=== PATIENT | male | born 1960 | race Caucasian/White ===

== ENCOUNTER 2018-05-21 18:41 | Emergency (ER) | payer OTHER ==
--- NOTE | 2018-05-21 19:11 | ED ---
GI/ HPI - HPI Summary HPI Summary: This patient is a 58 year old M presenting to [facility] with a chief complaint of an erection lasting for 36 hours. Patient states he has never experienced priapism. He reports taking Trazadone at night and often wakes with an erection but will self-catheterize and will become flaccid; however, due to the length of his erection/pain he is unable to self-catheterize. He states he forgot to call Dr. Pickett, his uruologist, yesterday. Pain is rated 9/10 upon triage. Medications reviewed, including: Baclofen, Tramadol, Prozac trazadone, Topamax, and Hydroxyzine. PMHx pertinent for neurogenic bladder and left nephrectomy. - History of Current Complaint Chief Complaint: EDUrogenitalProblems Time Seen by Provider: 05/21/18 19:01 Stated Complaint: "ERECTION FOR OVER 36 HRS" PER PT Hx Obtained From: Patient Onset/Duration: Started Days Ago Timing: Constant Current Severity: Severe Pain Intensity: 9 Additional Locations for Males: Penis Associated Signs and Symptoms: Positive: Negative Additional Signs & Symptoms: Positive: Penile Swelling Alleviating Factor(s): Nothing - Additional Pertinent History Primary Care Physician: [id number] - Allergy/Home Medications Allergies/Adverse Reactions: Allergies Allergy/AdvReac Type Severity Reaction Status Date / Time No Known Allergies Allergy Verified 05/21/18 19:00 PMH/Surg Hx/FS Hx/Imm Hx Endocrine/Hematology History: Reports: Hx Anticoagulant Therapy Denies: Hx Diabetes Cardiovascular History: Reports: Other Cardiovascular Problems/Disorders - PE Denies: Hx Hypertension, Hx Pacemaker/ICD Respiratory History: Reports: Hx Pulmonary Embolism GI History: Reports: Hx Gall Bladder Disease, Hx Ulcer - PUD, Other GI Disorders - cholecystectomy History: Reports: Hx Renal Disease, Other Problems/Disorders - left nephrectomy, vasectomy, neurogenic bladder Musculoskeletal History: Reports: Other Musculoskeletal History - L arm fx Sensory History: Reports: Hx Contacts or Glasses Denies: Hx Hearing Aid Opthamlomology History: Reports: Hx Contacts or Glasses Psychiatric History: Reports: Hx Anxiety, Hx Depression, Hx Post Traumatic Stress Disorder, Other Psychiatric Issues/Disorders - Insomnia Denies: Hx Panic Disorder - Surgical History Surgery Procedure, Year, and Place: LEFT NEPHRECTOMY -1996 ( NEUROGENIC BLADDER - SELF-CATH). VASECTOMY. CHOLECYSTECTOMY -2004 Infectious Disease History: No Infectious Disease History: Denies: Traveled Outside the [place] in Last 30 Days - Family History Known Family History: Positive: Hypertension, Other - alcoholism - Social History Alcohol Use: None Alcohol Amount: quit in december 2010 - pt. stated had no drinks in a few months Hx Substance Use: Yes Substance Use Type: Reports: Marijuana Substance Use Comment - Amount & Last Used: none recently Hx Tobacco Use: Yes - used to smoke 1 ppd for 20 years, but now smokes 1/2 ppd Smoking Status (MU): Former Smoker Type: Cigarettes Amount Used/How Often: 1/2 PPD Review of Systems Negative: Fever Positive: pain - penil, other - erection All Other Systems Reviewed And Are Negative: Yes Physical Exam - Summary Physical Exam Summary: Appearance: Well-appearing, Well-nourished, lying in bed comfortable Skin: Warm, dry, no obvious rash Eyes: sclera anicteric, no conjunctival pallor ENT: mucous membranes moist Neck: deferred Respiratory: No signs of respiratory distress Cardiovascular: Appears well perfused, pulses are nml Abdomen: deferred Musculoskeletal: Moving all 4 extremities without obvious discomfort Neurological: Awake and alert, mentation is normal, speech is fluent and appropriate Psychiatric: affect is normal, does not appear anxious or depressed : patient has normal appearing penis that is erect Triage Information Reviewed: Yes Vital Signs On Initial Exam: Initial Vitals Temp Pulse Resp BP Pulse Ox 99.2 F 72 16 146/98 98 05/21/18 18:47 05/21/18 18:47 05/21/18 18:47 05/21/18 18:47 05/21/18 18:47 Vital Signs Reviewed: Yes Procedures - Procedure Summary Procedure Summary: After dorsal penile block with a mix of marcaine 0.5% and xylocaine 2% w/ epi, 2 aspirations were done with a 18 gauge needle, a total of 110 ml of blood was take off, with some detumescence. Dilute phenylephrine was also injected, a total of 600 mcg. Will observe for detumescence but given duration of this problem he may end up needing surgery. Diagnostics - Vital Signs Vital Signs Temp Pulse Resp BP Pulse Ox 05/21/18 19:06 59 22 149/88 98 05/21/18 19:05 21 05/21/18 18:47 99.2 F 72 16 146/98 98 - Laboratory Lab Statement: Any lab studies that have been ordered have been reviewed, and results considered in the medical decision making process. GIGU Course/Dx - Course Course Of Treatment: 58 y/o male presents with priapism lasting 36 hours. Patient given morphine for pain. Case discussed with Dr. Quarles, uruology, who recommends aspiration and if unsuccessful to admit the patient. Two aspirations were done with a 18 gauge needle, a total of 110 ml of blood was taken off, with some detumescence. Dilute phenylephrine was also injected, a total of 600 mcg. Sufficent detumescence did not occur, requiring uruology consultation and possible surgery. Due to lack of uruology coverage here, patient will be transfered to [facility] Emergency Department with Dr. Yip as accepting physician. - Diagnoses Provider Diagnoses: Priapism - Physician Notifications Discussed Care Of Patient With: Gregorio Quarles - uruology Time Discussed With Above Provider: 19:40 Instructed by Provider To: Other - recommends aspiration Discharge - Sign-Out/Discharge Documenting (check all that apply): Patient Departure - transfer Patient Received Moderate/Deep Sedation with Procedure: No - Discharge Plan Condition: Fair Disposition: TRANS HIGHER LVL OF CARE FAC - Billing Disposition and Condition Condition: FAIR Disposition: Trans Higher Lvl of Care Fac - Attestation Statements Document Initiated by Akashibenrique: Yes Documenting Scribe: Merline Brito Provider For Whom Toña is Documenting (Include Credential): Eleazar Lutz MD Scribenrique Attestation: IMerline, scribed for Eleazar Lutz MD on 05/21/18 at 2140. Scribe Documentation Reviewed: Yes Provider Attestation: The documentation as recorded by the Merline gonzalez accurately reflects the service I personally performed and the decisions made by me, Eleazar Lutz MD Status of Scribe Document: Viewed
[2018-05-21] MEDS ORDERED: Phenylephrine 40 MCG/ML SYRINGE PRN (19:16)
[2018-05-21] MEDS ORDERED: Lidocaine 2% EPI 1:200000 MPF* 10 ML VIAL INJ ONE (19:16)
[2018-05-21] MEDS ORDERED: Bupivacaine 0.5% W/EPI SDV* 10 ML VIAL INJ ONE (19:16)
[2018-05-21] MEDS ORDERED: oxyCODONE/Acetamin 5/325 MG* TAB PO ONE (19:26)
[2018-05-21] MEDS ORDERED: Lidocaine 2% EPI 1:200000 MPF*10-20 ML VIAL ONE (19:29)
[2018-05-21] MEDS ORDERED: Bupivacaine 0.5% W/EPI SDV* 30 ML VIAL ONE (19:29)
[2018-05-21] MEDS ORDERED: Phenylephrine 10 MG/ML VIAL* 1 ML VIAL PRN (20:00)
[2018-05-21] MEDS ORDERED: Morphine 4 MG/ML VIAL (1 ml) 4 MG/ML VIAL IV ONE (20:42)
[2018-05-21] MEDS ORDERED: NS 0.9% 1000 ML** 1,000 ML IV ONE (20:42)
[2018-05-21 22:22] VITALS: BP 126/82
[2018-05-21] MEDS ORDERED: Morphine 10 MG/ML VIAL (1 ml) ONE (22:44)
[2018-05-21] MEDS ORDERED: Morphine 10 MG/ML VIAL (1 ml) IV ONE (22:46)
== END 2018-05-21 22:50 | disposition short-term general hospital (02) ==
LOC: ED 18:41
DX: N48.33 Priapism, drug-induced (principal); T43.215A Adverse effect of selective serotonin and norepinephrine reuptake inhibitors, initial encounter; Y92.9 Unspecified place or not applicable; Z86.711 Personal history of pulmonary embolism; Z79.01 Long term (current) use of anticoagulants; N31.9 Neuromuscular dysfunction of bladder, unspecified; N28.9 Disorder of kidney and ureter, unspecified; Z90.5 Acquired absence of kidney; F41.9 Anxiety disorder, unspecified; F32.9 Major depressive disorder, single episode, unspecified; Z90.49 Acquired absence of other specified parts of digestive tract; Z98.52 Vasectomy status; Z87.891 Personal history of nicotine dependence
CPT/HCPCS: 54220; 96361; 96374; 96375; 99285; A9270-GY; J2270

== ENCOUNTER 2018-06-15 18:36 | Observation (INO) | payer OTHER ==
[2018-06-15] MEDS ORDERED: NS 0.9% 1000 ML** 1,000 ML IV ONE (19:03)
[2018-06-15] MEDS ORDERED: Ketorolac INJ* 30 MG/ML 1 ML VIAL IV PUSH ONE (19:04)
[2018-06-15] MEDS ORDERED: Ondansetron INJ* 2 MG/ML VIAL IV ONE (19:04)
[2018-06-15] MEDS ORDERED: Morphine 4 MG/ML VIAL (1 ml) 4 MG/ML VIAL IV ONE ×4 (19:04→21:56)
--- NOTE | 2018-06-15 19:04 | ED ---
GI/ HPI - HPI Summary HPI Summary: A 58 y/o M presents to ED with c/o sudden-onset R-sided flank pain onset approx 1.5 hours [employer]. Pain is rated 10 out of 10 and described as stabbing. Pt had a L nephrectomy 20 years ago. He has had kidney stones in the past, but says it doesn't feel the same. Associated sx: n/v. Pt is in visible distress at bedside. The patient is followed by Dr. Pickett here in [place] and apparently developed a neurogenic bladder due to chronic reflux and distended bladder. The nephrectomy was done at [facility] about 22 years ago due to chronic infections associated with his reflux. - History of Current Complaint Chief Complaint: EDUrogenitalProblems Time Seen by Provider: 06/15/18 19:01 Stated Complaint: ONE KIDNEY, SOMETHINGS WRONG WITH IT PER PT Hx Obtained From: Patient Onset/Duration: Started Hours Ago, Atraumatic, Still Present Timing: Constant Severity: Severe Current Severity: Severe Pain Intensity: 10 - out of 10 Location of Pain: Flank - R Pain Characteristics: Sharp - stabbing Associated Signs and Symptoms: Positive: Nausea, Vomiting - Additional Pertinent History Primary Care Physician: MANDI - Allergy/Home Medications Allergies/Adverse Reactions: Allergies Allergy/AdvReac Type Severity Reaction Status Date / Time No Known Allergies Allergy Verified 05/21/18 19:00 Home Medications: Home Medications Albuterol/Ipratropium RESP(NF) [Combivent Respimat (NF)] 1 puff INH Q6HR PRN [History Confirmed 06/15/18] Lurasidone(*) [Latuda] 40 mg PO BEDTIME 06/15/18 [History Confirmed 06/15/18] Prazosin CAP* [Minipress CAP*] 3 mg PO BEDTIME 06/15/18 [History Confirmed 06/15] traZODone TAB* [Desyrel TAB*] 100 mg PO BEDTIME 06/15/18 [History Confirmed ] PMH/Surg Hx/FS Hx/Imm Hx Previously Healthy: No Endocrine/Hematology History: Reports: Hx Anticoagulant Therapy Denies: Hx Diabetes Cardiovascular History: Reports: Other Cardiovascular Problems/Disorders - PE Denies: Hx Hypertension, Hx Pacemaker/ICD Respiratory History: Reports: Hx Pulmonary Embolism GI History: Reports: Hx Gall Bladder Disease, Hx Ulcer - PUD, Other GI Disorders - cholecystectomy History: Reports: Hx Renal Disease, Other Problems/Disorders - left nephrectomy, vasectomy, neurogenic bladder Musculoskeletal History: Reports: Other Musculoskeletal History - L arm fx Sensory History: Reports: Hx Contacts or Glasses Denies: Hx Hearing Aid Opthamlomology History: Reports: Hx Contacts or Glasses Psychiatric History: Reports: Hx Anxiety, Hx Depression, Hx Post Traumatic Stress Disorder, Other Psychiatric Issues/Disorders - Insomnia Denies: Hx Panic Disorder - Surgical History Surgery Procedure, Year, and Place: LEFT NEPHRECTOMY -1996 ( NEUROGENIC BLADDER - SELF-CATH). VASECTOMY. CHOLECYSTECTOMY -2004 Infectious Disease History: No Infectious Disease History: Denies: Traveled Outside the [place] in Last 30 Days - Family History Known Family History: Positive: Hypertension, Other - alcoholism - Social History Occupation: Unemployed Lives: Alone Alcohol Use: None Alcohol Amount: quit in december 2010 - pt. stated had no drinks in a few months Hx Substance Use: Yes Substance Use Type: Reports: Marijuana Substance Use Comment - Amount & Last Used: none recently Hx Tobacco Use: Yes - used to smoke 1 ppd for 20 years, but now smokes 1/2 ppd Smoking Status (MU): Current Every Day Smoker Type: Cigarettes Amount Used/How Often: 1/2 PPD Review of Systems Positive: Vomiting, Nausea Positive: flank pain - R All Other Systems Reviewed And Are Negative: Yes Physical Exam - Summary Physical Exam Summary: Appearance: Well-appearing, Well-nourished, appears to be in colicky pain Skin: Warm, dry, no obvious rash Eyes: sclera anicteric, no conjunctival pallor ENT: mucous membranes moist, pharynx appears normal Neck: Supple, nontender Respiratory: Clear to auscultation, no signs of respiratory distress Cardiovascular: Normal S1, S2. No murmurs. Normal distal pulses in tibial and radial bilaterally. Abdomen: Soft, nontender, normal active bowel sounds present Musculoskeletal: Normal, Strength/ROM Intact Neurological: A&Ox3, awake and alert, mentation is normal, speech is fluent and appropriate Psychiatric: affect is normal, does not appear anxious or depressed Triage Information Reviewed: Yes Vital Signs On Initial Exam: Initial Vitals Temp Pulse Resp BP Pulse Ox 97.9 F 54 19 195/116 99 06/15/18 18:38 06/15/18 18:38 06/15/18 18:38 06/15/18 18:38 06/15/18 18:38 Vital Signs Reviewed: Yes Diagnostics - Vital Signs Vital Signs Temp Pulse Resp BP Pulse Ox 06/15/18 18:38 97.9 F 54 19 195/116 99 - Laboratory Result Diagrams: 06/17/18 06:23 06/17/18 06:23 Lab Statement: Any lab studies that have been ordered have been reviewed, and results considered in the medical decision making process. - CT A/P CT CT Interpretation Completed By: Radiologist Summary of CT Findings: IMPRESSION: 1. Moderate to severe hydronephrosis and hydroureter caused by 8 6 x 7 mm calculus in the distal right ureter close to the UVJ. 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 Few additional small calculi seen in the right lower pole. There are a few calculi within the thick walled bladder. 2. Status post left nephrectomy. ED provider has reviewed this report. - Ultrasound No standard instances Ultrasound Interpretation Completed By: Radiologist Summary of Ultrasound Findings: R RENAL US IMPRESSION: Severe hydronephrosis of the right kidney and hydroureter. Several large intrarenal calculi seen. ED provider has reviewed this report. Re-Evaluation - Re-Evaluation 1 Re-Evaluation Time: 19:31 Change: Unchanged Comment: Pt stating medication not providing relief. Patient seen during ultrasound, he clearly has hydronephrosis. Given that he has only a solitary remaining kidney, we will need to get a CT scan to confirm the diagnosis of ureteral stone as he would likely need surgical regimen prior to someone with 2 kidneys. 2 Re-Evaluation Time: 21:15 Comment: Clarified that pt last drank water at 1800 and ate solid food at 1300. 3 Re-Evaluation Time: 21:40 Comment: Discussing consult with Dr. Pickett and plan to take pt to OR. 4 Re-Evaluation Time: 21:53 GIGU Course/Dx - Course Course Of Treatment: Pt is a 58 y/o M who appears to be in colicky pain c/o sudden-onset R-sided flank pain onset approx 1630. Pt had a L nephrectomy 20 years ago. Lab work shows WBC: 17.6, CO2: 17, Creatinine: 1.4. R Renal US shows "Severe hydronephrosis of the right kidney and hydroureter. Several large intrarenal calculi seen." A/P CT shows "1. Moderate to severe hydronephrosis and hydroureter caused by 8 6 x 7 mm calculus in the distal right ureter close to the UVJ. 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 Few additional small calculi seen in the right lower pole. There are a few calculi within the thick walled bladder. 2. Status post left nephrectomy.". Consulted with Dr. Pickett uro, who will take patient to surgery. - Diagnoses Provider Diagnoses: Renal colic, Ureteral obstruction, right, Solitary kidney, acquired - Physician Notifications Discussed Care Of Patient With: Jak Pickett - uro Time Discussed With Above Provider: 21:10 Instructed by Provider To: Other - Discussed case, he'll look at CT and call back. Consulted at 2140: Will call OR team and take pt to surgery. Discharge - Sign-Out/Discharge Documenting (check all that apply): Patient Departure - ADMIT - OR Patient Received Moderate/Deep Sedation with Procedure: No - Discharge Plan Condition: Stable Disposition: ADMITTED TO [facility] - Billing Disposition and Condition Condition: STABLE Disposition: Admitted to [facility] - Attestation Statements Document Initiated by Toña: Yes Documenting Akashibe: Monique Montano Provider For Whom Toña is Documenting (Include Credential): Dr. Eleazar Lutz MD Scribe Attestation: Monique Ordonez, scribed for Dr. Eleazar Lutz MD on 06/18/18 at 0644. Scribe Documentation Reviewed: Yes Provider Attestation: The documentation as recorded by the Monique gonzalez accurately reflects the service I personally performed and the decisions made by me, Dr. Eleazar Lutz MD Status of Scribe Document: Viewed
[2018-06-15 19:56] LABS: ABS Basophils 0 10^3/ul (0-0.2); ABS Eosinophils 0.1 10^3/ul (0-0.6); ABS Lymphocytes 1.1 10^3/ul (1.0-4.8); ABS Monocytes 0.6 10^3/ul (0-0.8); ABS Neutrophils 15.8 10^3/ul (1.5-7.7); ABS Nucleated RBC 0 10^3/ul; Eosinophil % 0.3 %; Hematocrit 43 % (36-46); Hemoglobin 14.3 g/dL (14.0-18.0); Lymphocyte % 6.1 %; Mean Corpuscular HGB Conc 33 g/dL (31-36); Mean Corpuscular Hemoglobin 32 pg (27-31); Mean Corpuscular Volume 95 fL (80-94); Mean Platelet Volume 7.5 fL (7.4-10.4); Nucleated Red Blood Cells % 0; Platelet Count 236 10^3/uL (150-450); Red Blood Count 4.51 10^6 /uL (4.18-5.48); Red Cell Distribution Width 13 % (10.5-15); White Blood Count 17.6 10^3/uL (3.5-10.8)
[2018-06-15 20:14] LABS: Albumin/Globulin Ratio 1.4 (1-3); BUN/Creatinine Ratio 7.9 (8-20); Calcium 8.7 mg/dL (8.6-10.3); EGFR African American 63.4 (>60); EGFR Non-African American 52.4 (>60); Globulin 2.8 g/dL (2-4); Potassium 3.7 mmol/L (3.5-5.0); Total Bilirubin 0.3 mg/dL (0.2-1.0); Total Protein 6.8 g/dL (6.4-8.9)
[2018-06-15] MEDS ORDERED: cefTRIAXone(*) 1 GM in NS 0.9% 50 ML* 50 ML IVPB ONE (21:40)
[2018-06-15] MEDS ORDERED: Iohexol 180 (CONTRAST) 10 ML SDV IV ONE (22:12)
[2018-06-15] MEDS ORDERED: Buffered Lidocaine 1% SYRIN* 1 ML/SYRINGE INTRADERM ONE (22:25)
[2018-06-15] MEDS ORDERED: Naloxone* 0.4 MG/ML 1 ML VIAL IV PRN (22:26)
[2018-06-15] MEDS ORDERED: PROCHLORPERAZINE INJ 5 MG/ML 2 ML VIAL IV PRN (22:26)
[2018-06-15] MEDS ORDERED: Acetaminophen IV 1GM/100ML * 1,000 MG/100 ML VIAL IVPB ONE (22:26)
[2018-06-15] MEDS ORDERED: DiMENhydriNATE IV* 50 MG/ML VIAL IV PUSH PRN (22:26)
[2018-06-15] MEDS ORDERED: diPHENhydraMINE IV* 50 MG/ML 1 ml VIAL (BENADRYL) IV PRN (22:26)
[2018-06-15] MEDS ORDERED: fentaNYL* 50 MCG/ML 2 ML VIAL (100 MCG VIAL) IV PRN (22:26)
[2018-06-15] MEDS ORDERED: Levalbuterol 0.63MG/3ML NEB* UNIT OF USE INH PRN (22:26)
[2018-06-15] MEDS ORDERED: Levofloxacin 750 MG IVPREMIX(* 750 MG/150 ML BAG ONE (22:34)
[2018-06-15] MEDS ORDERED: Famotidine IV* 10 MG/ML 2 ML (20 mg) ONE (22:40)
[2018-06-15] MEDS ORDERED: Lidocaine 2% PF * 5 ML VIAL ONE (22:45)
[2018-06-15] MEDS ORDERED: Cisatracurium* 2 MG/ML MDV 5 ML ONE (22:45)
[2018-06-15] MEDS ORDERED: Dexamethasone IV* 4 MG/ML 1 ML (4 MG) ONE (22:45)
[2018-06-15] MEDS ORDERED: Propofol* 10 MG/ML 20 ML BTL ONE ×2 (22:45→23:37)
[2018-06-15] MEDS ORDERED: fentaNYL* 50 MCG/ML 2 ML VIAL (100 MCG VIAL) ONE (22:45)
[2018-06-15] MEDS ORDERED: Succinylcholine* 20 MG/ML 10 ML VIAL ONE (22:45)
[2018-06-15] MEDS ORDERED: Ondansetron INJ* 2 MG/ML VIAL IV PRN (22:59)
[2018-06-15] MEDS ORDERED: Docusate CAP* 100 MG PO PRN (22:59)
[2018-06-15] MEDS ORDERED: Senna TAB PO PRN (22:59)
[2018-06-15] MEDS ORDERED: Magnesium Hydroxide LIQ* 30 ML UDC PO PRN (22:59)
[2018-06-15] MEDS ORDERED: hydrOXYzine HCL TAB* 50 MG PO PRN (23:05)
[2018-06-16] MEDS ORDERED: Levalbuterol HFA INHALER* 1 PUFF MDI ONE (00:01)
--- NOTE | 2018-06-16 00:03 | HP ---
HISTORY AND PHYSICAL: ADDENDUM: It should be corrected - the patient will receive levofloxacin while in the OR, not vancomycin. It should also report that we will continue with Rocephin in the postoperative period unless cultures grow otherwise, given the multiple drug reactions between patient's home medications and ciprofloxacin. RAFITA AGUILAR, HUB INVENTORY SPECIALIST [id number]/[facility] #: [id number] [facility]rick
[2018-06-16] MEDS ORDERED: Acetaminophen IV 1GM/100ML * 100 ML ONE (00:17)
[2018-06-16] MEDS: Lactated Ringers 1000 ML Bag* 1,000 ML IV SCH ×4 (01:09→22:16)
[2018-06-16] MEDS: traZODone TAB* 100 MG PO SCH ×2 (01:48→21:29)
[2018-06-16] MEDS: traMADol TAB* 50 MG PO PRN ×4 (01:48→21:29)
[2018-06-16] MEDS ORDERED: HYDROmorphone INJ1* 1 MG/ML SYRINGE IV PRN (02:53)
[2018-06-16] MEDS ORDERED: HYDROmorphone INJ1* 1 MG/ML SYRINGE ONE (03:00)
--- NOTE | 2018-06-16 03:36 | HP ---
ADDENDUM NOW INCLUDED ON THIS REPORT CC: Dr. Molina; Dr. Pickett * HISTORY AND PHYSICAL: DATE OF ADMISSION: 06/15/18. PRIMARY CARE PROVIDER: Dr. Molina. OTHER PROVIDER: Dr. Pickett. ATTENDING PHYSICIAN: Dr. Bullock * (dictated by Bel Aguilar NP) CHIEF COMPLAINT: Right flank pain. HISTORY OF PRESENT ILLNESS/HOSPITAL COURSE: Mr. Coon is a 58-year-old male with a past medical history of asthma, kidney stones, anxiety, back pain, COPD, chronic pain; who presented to the emergency department today with sudden onset right-sided flank pain. Onset was approximately 1.5 hours before arriving to the emergency department. He rated the pain as 10/10. He also complained of nausea and vomiting in the emergency room and was documented to be in visible distress. While in the emergency department, patient had a CT of his abdomen, which revealed moderate to severe hydronephrosis and hydroureter caused by a 6 x 7 mm calculus in the distal right ureter close to the UVJ. In addition, patient had a renal ultrasound which revealed severe hydronephrosis of the right kidney and hydroureter. Several large intrarenal calculi seen. Given these findings, in addition to the finding of leukocytosis and elevated creatinine, Dr. Pickett from Urology was consulted. Dr. Pickett is familiar with the patient and decided that the patient should be taken to the OR. The hospitalists were consulted to assist in patient's admission. The patient was evaluated in the PACU prior to be taken to surgery. Patient reports he is more comfortable now after pain medication. PAST MEDICAL HISTORY: 1. Asthma. 2. Kidney stone. 3. Anxiety. 4. Back pain. 5. COPD. 6. Chronic pain syndrome. 7. Posttraumatic stress disorder. 8. Neuromuscular dysfunction of the bladder. PAST SURGICAL HISTORY: 1. Cholecystectomy. 2. Nephrectomy of left kidney. HOME MEDICATIONS: 1. Combivent Respimat 1 puff inhalation q.6 hours p.r.n. 2. Latuda 40 mg p.o. at bedtime. 3. Trazodone 100 mg p.o. at bedtime. 4. Symbicort 2 puffs inhalations b.i.d. 5. Baclofen 10 mg p.o. t.i.d. p.r.n. 6. Minipress 3 mg p.o. at bedtime. 7. Prozac 30 mg p.o. daily. 8. Minipress 1 mg p.o. daily. 9. Tramadol 50 mg p.o. q.6 hours p.r.n. 10. Hydroxyzine 50 mg p.o. t.i.d. p.r.n. 11. Topamax 50 mg p.o. t.i.d. ALLERGIES: Patient has no allergies. FAMILY HISTORY: Significant for the fact that he does not know his biological father, but he was told he was an alcoholic. This was obtained from previous records. SOCIAL HISTORY: Patient has a significant history of smoking approximately 40 years. Patient reports he quit 2 months ago. 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 Patient denies recreational drug use. Patient does not have a healthcare proxy and does not want to assign a surrogate decision maker at this time. REVIEW OF SYSTEMS: Constitutional: No fevers. No anorexia. Cardiac: No chest pain, no edema. Respiratory: No cough, no hemoptysis, no shortness of breath. GI: Patient has been experiencing nausea and vomiting since the onset of pain. No diarrhea, no constipation. Right flank pain. : Patient has had a decrease in urine output. Patient self-caths due to flaccid bladder. Neuro: No focal weakness or sensory loss. Eyes: No visual complaints. ENT: No dysphagia. Musculoskeletal: No new arthritis or myalgias. Patient reports he does have chronic pain in his back. Skin: No rashes or lesions. Psych: No psychosis or anxiety. PHYSICAL EXAMINATION GENERAL: Mr. Coon is a 58-year-old male with a past medical history significant for asthma, kidney stones, anxiety, back pain, COPD, chronic pain, neuromuscular dysfunction of bladder, PTSD, hypertension, pulmonary embolism who is sitting on the stretcher in the PACU. He is in no acute distress. Appears stated age. VITAL SIGNS: Temp 99.3, HR 72, RR 22, O2 saturation 94% on room air, BP 146/90. HEENT: Oral mucosa is moist without lesion. Posterior pharynx is clear. NECK: Full range of motion. No lymphadenopathy. RESPIRATORY: Symmetrical chest expansion. No accessory muscle use. Lung sounds are clear to auscultation. CARDIAC: Regular rate and rhythm. S1, S2 present. No murmurs, rubs, or gallops. ABDOMEN: Soft. Tender to palpation throughout. Bowel sounds normoactive. EXTREMITIES: Skin is warm and smooth bilaterally. No edema. MUSCULOSKELETAL: No pain or deformities. NEURO: Awake, alert, and oriented x4. Moves all extremities well. SKIN: Grossly intact without lesions. DIAGNOSTIC STUDIES/LAB DATA: WBC 16.6, hemoglobin 14.3, hematocrit 43, platelets 236,000. Sodium 136, potassium 3.7, chloride 107, carbon dioxide 17. BUN 11, creatinine 1.40, glucose 109. Renal ultrasound: Impression: Severe hydronephrosis of the right kidney and hydroureter. Several large intrarenal calculi seen. Abdomen/pelvis CT: Impression: Moderate to severe hydronephrosis and hydroureter caused by 6 x 7 mm calculus in the distal right ureter close to the UVJ. 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 A few additional small calculi seen in the right lower pole. There are a few calculi within the thick walled bladder. Status post left nephrectomy. ASSESSMENT AND PLAN: Mr. Coon is a 58-year-old male with a past medical history significant for asthma, kidney stone, anxiety, back pain, chronic obstructive pulmonary disease, chronic pain syndrome, neuromuscular dysfunction of bladder, posttraumatic stress disorder, hypertension, pulmonary embolism; who presented to the emergency department today with complaints of right flank pain and was found to have severe hydronephrosis with renal calculi. The patient will be admitted OBV after a stent is placed in the right ureter by Dr. Pickett. 1. Severe hydronephrosis of the right kidney and hydroureter, several large calculi: As mentioned above, Dr. Pickett was consulted and will be taking the patient to the OR this evening to place a stent in the right ureter. This hydronephrosis and calculi is causing leukocytosis, elevated creatinine, and decrease in urine output. After insertion of stent, patient should have repeat CBCs to monitor his white count. He should have strict I's and O's to monitor for urine output. He should also have IV fluids and a repeat creatinine to monitor kidney function. Patient received a dose of Rocephin in the emergency department. My attending and I reviewed patient's previous micro in the computer and believe he would be better covered on ciprofloxacin in the postop period. Per Dr. Pickett, he will also receive a dose of vanco while in the OR. 2. Asthma/chronic obstructive pulmonary disease: Patient reports he follows with Dr. Veloz. I have consulted Dr. Veloz's notes in regard to his inhaler treatment as he could not recall the names and I have updated his med rec accordingly and ordered these medications. Patient will be provided with these inhalers and nebulizers. 3. History of kidney stones: As mentioned above, Dr. Pickett is familiar with the patient due to history of kidney stones: Patient will receive a stent in the right ureter today. 4. Anxiety/posttraumatic stress disorder/depression: I have consulted the patient regarding his medication regimen and I have also consulted [employer]. Patient's medication reconciliation has been updated and his meds have been ordered accordingly. We should continue these while the patient is inpatient. We should also provide supportive care. 5. Back pain/chronic pain syndrome: Patient reports that he is a client of the pain clinic. Patient reports they have been working on reducing his medications. I reviewed patient's current medication regimen with him and I have ordered his pain medications accordingly. I would recommend these are held in the postop period at least this evening and restart it tomorrow and also help for sedation. 6. Neuromuscular dysfunction of bladder: Dr. Pickett mentioned that the patient does have a flaccid bladder and it is not neurogenic bladder in origin. He reports that the patient self-caths 3 to 4 times per day. Patient will have a Chinchilla in the postop period and then can resume self-cath. We should monitor patient's output as he was not producing urine prior to his arrival to the emergency department. 7. Essential hypertension: Patient is currently normotensive in the PACU. Patient is on terazosin which could be for his bladder or for blood pressure: Either way, I have reordered this and patient should have routine vital signs. 8. History of pulmonary embolism: In reviewing patient's medical history and Envivio, it is mentioned that patient had a clot in his lung provoked by a right elbow fracture. Given this, I will place the patient on subcu heparin for DVT prophylaxis. 9. FEN: Patient will be provided with IV fluid hydration. Patient can start a regular diet as tolerated after the OR. 10. Code status: Patient is a full code. 11. DVT prophylaxis: Based on DVT risk assessment, patient is moderate risk. I will order subcu heparin. TIME SPENT: Approximately 60 minutes were spent on this admission, greater than half the time was spent with the patient obtaining my history and performing my physical exam and reviewing my plan of care. The case has been reviewed with my attending, Dr. Bullock who agrees with my plan. BEL AGUILAR NP ADDENDUM: It should be corrected - the patient will receive levofloxacin while in the OR, not vancomycin. It should also report that we will continue with Rocephin in the postoperative period unless cultures grow otherwise, given the multiple drug reactions between patient's home medications and ciprofloxacin. BEL AGUILAR NP [id number]/CPS #: [id number]/CPS #: [id number] BEBA
[2018-06-16] MEDS ORDERED: HYDROmorphone INJ1* 1 MG/ML SYRINGE IV ONE (04:30)
[2018-06-16 05:16] LABS: ABS Basophils 0 10^3/ul (0-0.2); ABS Eosinophils 0 10^3/ul (0-0.6); ABS Lymphocytes 0.5 10^3/ul (1.0-4.8); ABS Monocytes 0.8 10^3/ul (0-0.8); ABS Neutrophils 15.9 10^3/ul (1.5-7.7); ABS Nucleated RBC 0 10^3/ul; Eosinophil % 0 %; Hematocrit 43 % (36-46); Hemoglobin 14.6 g/dL (14.0-18.0); Lymphocyte % 2.9 %; Mean Corpuscular HGB Conc 34 g/dL (31-36); Mean Corpuscular Hemoglobin 33 pg (27-31); Mean Corpuscular Volume 96 fL (80-94); Mean Platelet Volume 7.3 fL (7.4-10.4); Nucleated Red Blood Cells % 0; Platelet Count 219 10^3/uL (150-450); Red Blood Count 4.47 10^6 /uL (4.18-5.48); Red Cell Distribution Width 13 % (10.5-15); White Blood Count 17.3 10^3/uL (3.5-10.8)
[2018-06-16 05:34] LABS: Albumin 3.9 g/dL (3.2-5.2); Albumin/Globulin Ratio 1.4 (1-3); BUN/Creatinine Ratio 8.6 (8-20); Calcium 8.7 mg/dL (8.6-10.3); EGFR Non-African American 52.9 (>60); Globulin 2.8 g/dL (2-4); Potassium 4.7 mmol/L (3.5-5.0); Total Bilirubin 0.5 mg/dL (0.2-1.0); Total Protein 6.7 g/dL (6.4-8.9)
[2018-06-16] MEDS ORDERED: (Combivent Respimat) INH PRN (09:00)
[2018-06-16] MEDS: Topiramate TAB(*) 25 MG PO SCH ×3 (09:03→21:29)
[2018-06-16] MEDS: Prazosin CAP* 1 MG PO SCH (09:03)
[2018-06-16] MEDS: FLUoxetine CAP* 10 MG PO SCH (09:03)
[2018-06-16] MEDS: Baclofen TAB* 10 MG PO PRN ×2 (09:03→21:29)
[2018-06-16] MEDS: Heparin VIAL(*) 5000 UNITS/ML VIAL (FIVE THOUSAND) SUBCUT SCH ×2 (09:04→21:35)
[2018-06-16] MEDS: Mometasone/Formoter 200/5 MDI INH SCH ×2 (09:06→20:47)
--- NOTE | 2018-06-16 10:41 | OP ---
DATE OF OPERATION: 06/15/18 - ROOM #331 DATE OF : 64 SURGEON: Dr. Pickett. ANESTHESIOLOGIST: Dr. Lee Slade. ANESTHESIA: General. PRE-OP DIAGNOSES: 1. Solitary right kidney. 2. Distal right ureteral calculus. 3. Right hydronephrosis and anuria due to above. 4. Multiple bladder calculi. POST-OP DIAGNOSES: 1. Solitary right kidney. 2. Distal right ureteral calculus. 3. Right hydronephrosis and anuria due to above. 4. Multiple bladder calculi. OPERATIVE PROCEDURES: 1. Cystoscopy. 2. Right retrograde pyelography. 3. Right ureteroscopy. 4. Laser lithotripsy and extraction of distal right ureteral calculus (8 mm). 5. Right ureteral stent insertion (7-Nicaraguan). 6. Cystolitholapaxy (4 calculi, 1 cm each). INDICATION FOR PROCEDURE: Mr. Coon is a 58-year-old white male who has a solitary right kidney, flaccid neurogenic bladder, on intermittent self catheterization. He presented to the emergency room early this evening with symptoms of right renal colic and anuria. He did not have fever or chills. Noncontrast CT of the abdomen and pelvis showed a solitary right kidney, severe right hydronephrosis and hydroureter with an 8 mm calculus in the distal right ureter. There were also several calculi noted within the bladder. Because of the above history and findings, the patient is taken to the operating room on an urgent basis for drainage of the right kidney. PATHOLOGY AT CYSTOSCOPY: The penile and bulbar urethrae looked normal. The prostatic urethra measured 2.5 cm in length and there was moderate degree of obstruction by prostate enlargement. Examination of the bladder showed diffuse heavy trabeculations. The bladder was floppy consistent with the history of flaccid neurogenic bladder. There were minimal changes of cystitis. The right ureteral orifice was moderately patulous. Upon right retrograde pyelography, there was dilatation and tortuosity of the proximal ureter and there was severe right hydronephrosis. The urine drained from the right kidney looked concentrated, but did not look grossly infected. Upon right uteroscopy, there was an 8 mm calculus located in the distal right ureter. There were 5 calculi noted in the base of the bladder measuring an average of 1 cm each. The calculi had the gross appearance of calcium phosphate stones. DESCRIPTION OF PROCEDURE: After successful general anesthesia, the patient was placed in the lithotomy position and was prepped and draped for a cystoscopy. Cystoscopy was performed. The bladder was inspected and the above findings were noted. The right ureteral orifice was identified. A flexible tip guidewire was introduced into the right orifice; however, it could not be passed beyond the proximal ureter due to tortuosity. Retrograde pyelography was then performed demonstrating the tortuosity of the ureter. A glidewire was then introduced inside the right ureter and after several attempts, successfully straightened up the tortuosity of the ureter and the guidewire was introduced inside the renal pelvis. The open-ended catheter was then fed on top of the glidewire. Urine was drained from the right kidney and it did not look infected. The guidewire was then placed and the open-ended catheter was removed. Because the urine did not look infected and the bladder wall did not show any cystitis, it was decided to proceed with the right ureteroscopy. A size 6.5 semirigid ureteroscope was introduced inside the bladder and passed inside the right ureter. The calculus in the distal ureter was identified. A basket was introduced through the port of the ureteroscope and the stone was engaged. A size 550 micron laser fiber was then introduced through the other port of the ureteroscope and the stone was broken into multiple fragments using the laser energy. The fragments were then all extracted from the ureter and placed inside the bladder. The calculi in the bladder were also engaged inside the basket and they were all extracted and sent for chemical analysis. The cystoscope was then introduced over the guidewire. A size 7-Nicaraguan stent was then placed with the proximal end coiling in the renal pelvis and the distal end coiling inside the bladder. A 16-Nicaraguan Chinchilla catheter was then placed. The patient tolerated the procedure well and left the operating room in good condition. SPECIMENS: The specimens were fragments of right ureteral calculus and the bladder calculi. [id number]/CPS #: [id number] BEBA
--- NOTE | 2018-06-16 18:07 | PN ---
Subjective Date of Service: 06/16/18 Interval History: VS: afebrile Labs: leukocytosis, slightly elevated Cr Pt states he has chills and continued R flank and R abdominal pain. He feels unwell to go home. He is eating and drinking, but admits to decrease in appetite. No nausea, vomiting. He states his urine is dark and blood tinged- there is also sediment noted in julien bag. He denies CP, SOB, fever, abdominal pain, n/v/d/c. He has had no BM today. He has a cough, though he states this is chronic, and he follows with Dr. Veloz for asthma/COPD. Objective Active Medications: Albuterol/Ipratropium (Combivent Respimat(Nf)) 1 puff INH BID PRN; Protocol Baclofen (Lioresal Tab*) 10 mg PO TID PRN Docusate Sodium (Colace Cap*) 100 mg PO BID PRN Fluoxetine HCl (Prozac Cap*) 30 mg PO DAILY LETY Heparin Sodium (Porcine) (Heparin Vial(*)) 5,000 units SUBCUT Q12HR LETY Hydromorphone HCl (Dilaudid Inj1s*) 0.5 mg IV Q6H PRN Hydroxyzine HCl (Atarax Tab*) 50 mg PO TID PRN Lactated Ringer's (Lactated Ringers 1000 Ml Bag*) 1,000 mls @ 150 mls/hr IV PER RATE LETY Ceftriaxone Sodium 1 gm/ (Sodium Chloride) 50 mls @ 200 mls/hr IVPB 2100 LETY Levalbuterol HCl (Xopenex 0.63mg/3ml Neb*) 0.63 mg INH ONCE PRN Lurasidone HCl (Latuda) 40 mg PO BEDTIME LETY Magnesium Hydroxide (Milk Of Magnesia Liq*) 30 ml PO Q4H PRN Mometasone Furoate/Formoterol Fumar (Dulera 200/5 Mdi*) 2 puff INH BID LETY; Protocol Prazosin HCl (Minipress Cap*) 1 mg PO DAILY LETY Prazosin HCl (Minipress Cap*) 3 mg PO BEDTIME LETY Senna (Senokot Tab*) 1 tab PO BID PRN Topiramate (Topamax(*)) 50 mg PO TID LETY Tramadol HCl (Ultram*) 50 mg PO Q6H PRN Trazodone HCl (Desyrel Tab*) 100 mg PO BEDTIME LETY Vital Signs: Temp Pulse Resp BP Pulse Ox 98.4 F 54 16 131/64 98 06/16/18 15:18 06/16/18 15:18 06/16/18 16:25 06/16/18 15:18 06/16/18 15:18 Oxygen Devices in Use Now: None Appearance: Pt is sitting up in bed with HOB elevated and LE elevated. He appears diaphoretic. He is in no acute distress. Eyes: No Scleral Icterus, PERRLA Ears/Nose/Mouth/Throat: NL Teeth, Lips, Gums, Clear Oropharnyx, Mucous Membranes Moist Neck: NL Appearance and Movements; NL JVP, Trachea Midline Respiratory: Symmetrical Chest Expansion and Respiratory Effort, - - R lung with diffuse rales throughout; L CTA Cardiovascular: NL Sounds; No Murmurs; No JVD, RRR, No Edema Abdominal: NL Sounds; No Tenderness; No Distention, - - R CVA tenderness; abd diffusely TTP, R>L Extremities: No Edema, No Clubbing, Cyanosis Neurological: Alert and Oriented x 3 Result Diagrams: 06/16/18 04:58 06/16/18 04:58 Assess/Plan/Problems-Billing Assessment: - Patient Problems (1) S/P ureteral stent placement Comment: -POD1 lithotripsy with R ureteral stent placement -Management per Dr. Pickett -Follow up with Dr. Pickett in office in a.m. (2) Asthma with COPD Comment: -No wheeze, change in cough, but rales throughout L lung and chills -CXR 1V ordered -Continue home medications (3) Flaccid neurogenic bladder Comment: -Producing uring; julien inserted -Pt straight cath 3-4x/d at home; will resume on discharge (4) Chronic pain Comment: -Continue home medications (5) Anxiety Comment: -Continue home medications (6) Hypertension Comment: -WNL -Continue to monitor (7) DVT prophylaxis Comment: -Continue Heparin (8) Full code status Status and Disposition: Observation. Nieves following. Likely d/c in a.m.
[2018-06-16] MEDS ORDERED: Ketorolac INJ* 30 MG/ML 1 ML VIAL ONE (18:34)
[2018-06-16] MEDS: Ketorolac INJ* 30 MG/ML 1 ML VIAL IV PUSH PRN (18:52)
[2018-06-16] MEDS ORDERED: cefTRIAXone(*) 1 GM in NS 0.9% 50 ML* 50 ML IVPB SCH (21:00)
[2018-06-16] MEDS ORDERED: Prazosin CAP* 1 MG PO SCH (21:00)
[2018-06-16] MEDS ORDERED: Lurasidone(*) 40 MG TAB PO SCH (21:00)
[2018-06-17] MEDS: Ketorolac INJ* 30 MG/ML 1 ML VIAL IV PUSH PRN (01:33)
[2018-06-17] MEDS: Lactated Ringers 1000 ML Bag* 1,000 ML IV SCH (05:26)
[2018-06-17 06:41] LABS: ABS Basophils 0.1 10^3/ul (0-0.2); ABS Eosinophils 0.1 10^3/ul (0-0.6); ABS Lymphocytes 1.9 10^3/ul (1.0-4.8); ABS Monocytes 0.8 10^3/ul (0-0.8); ABS Neutrophils 5.7 10^3/ul (1.5-7.7); ABS Nucleated RBC 0 10^3/ul; Eosinophil % 1.2 %; Hematocrit 38 % (36-46); Hemoglobin 12.7 g/dL (14.0-18.0); Lymphocyte % 22.1 %; Mean Corpuscular HGB Conc 34 g/dL (31-36); Mean Corpuscular Hemoglobin 32 pg (27-31); Mean Corpuscular Volume 96 fL (80-94); Mean Platelet Volume 7.6 fL (7.4-10.4); Nucleated Red Blood Cells % 0; Platelet Count 170 10^3/uL (150-450); Red Blood Count 3.92 10^6 /uL (4.18-5.48); Red Cell Distribution Width 13 % (10.5-15); White Blood Count 8.5 10^3/uL (3.5-10.8)
[2018-06-17 06:57] LABS: BUN/Creatinine Ratio 13.5 (8-20); Calcium 8.4 mg/dL (8.6-10.3); EGFR African American 82.9 (>60); EGFR Non-African American 68.5 (>60); Potassium 3.7 mmol/L (3.5-5.0)
[2018-06-17] MEDS: Mometasone/Formoter 200/5 MDI INH SCH (10:19)
[2018-06-17] MEDS: Topiramate TAB(*) 25 MG PO SCH ×2 (10:23→14:44)
[2018-06-17] MEDS: Prazosin CAP* 1 MG PO SCH (10:23)
[2018-06-17] MEDS: Baclofen TAB* 10 MG PO PRN ×2 (10:23→14:44)
[2018-06-17] MEDS: traMADol TAB* 50 MG PO PRN ×2 (10:23→14:44)
[2018-06-17] MEDS: Heparin VIAL(*) 5000 UNITS/ML VIAL (FIVE THOUSAND) SUBCUT SCH (10:24)
[2018-06-17] MEDS: FLUoxetine CAP* 10 MG PO SCH (10:24)
[2018-06-17 14:48] VITALS: BP 139/82
--- NOTE | 2018-06-18 01:12 | DS ---
CC: Dr. Chris Elder; Dr. Jak Pickett* DISCHARGE SUMMARY: DATE OF ADMISSION: 06/15/18 DATE OF DISCHARGE: 06/17/18 PRIMARY CARE PROVIDER: Dr. Chris Elder. UROLOGIST: Dr. Jak Pickett. ATTENDING PHYSICIAN: Dr. Rafat Hall* (dictated by Gege Salas NP). PRIMARY DIAGNOSES: 1. Nephrolithiasis, status post right ureteral stent placement. 2. Hydronephrosis. 3. Acute kidney injury. SECONDARY DIAGNOSES: 1. Asthma. 2. Chronic obstructive pulmonary disease. 3. Anxiety. 4. Depression. 5. Chronic back pain. 6. Neurogenic bladder. 7. Hypertension. STUDIES WHILE IN THE HOSPITAL: 1. Renal ultrasound on 06/15/18 reads as severe hydronephrosis of the right kidney and hydroureter. Several large intrarenal calculi seen. 2. Abdomen pelvis CT on 06/15/18 reads as moderate to severe hydronephrosis and hydroureter caused by 8 x 6 x 7 mm calculus in the distal right ureter close to the UVJ. 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 Few additional small calculi seen in the right lower pole. There are few calculi within the thick walled bladder. Status post left nephrectomy. 3. Chest x-ray on 06/16/18 reads as no evidence for acute disease. 4. EKG on 06/17/18 showed normal sinus rhythm with a rate of 60, QTc of 442, no ischemic changes. 5. KUB x-ray on 06/17/18 reads as right ureteral stent in place. Nephrolithiasis in the lower pole of the right kidney is noted. HISTORY OF PRESENT ILLNESS AND HOSPITAL COURSE: Mr. Coon is a 58-year-old male with past medical history of nephrolithiasis, COPD, anxiety, depression, chronic back pain, and neuromuscular dysfunction of the bladder requiring self- cath who presented to the emergency room on 06/15/18 with complaints of right flank pain. Please see the history and physical by Bel Marion NP, for complete summary of the events leading up to this hospitalization. In short, the patient reports sudden onset of right flank pain approximately one and half hours prior to coming into the emergency room. He described the pain as 10/10 with associated nausea and vomiting. He had imaging as noted above, and because of those findings and acute kidney injury, Dr. Pickett from Urology was consulted. Dr. Pickett was familiar with the patient and proceeded to take him to the OR. The patient was admitted by the Hospitalist service. The patient was noted to have leukocytosis on admission with a white blood count of 17.6, white blood count as of today is 8.5. This is presumably elevated secondary to a stress response and was not indicative of any infection or infectious process, though because of the high suspicion for urinary tract infection, the patient was given a dose of Levaquin and subsequently started on ceftriaxone. The patient did not have urinalysis during this admission and it is not entirely clear why. On the day of admission, the patient underwent a cystoscopy, ureteroscopy, laser lithotripsy, and extraction of right ureteral calculus and a right ureteral stent insertion. The patient tolerated the procedure well and had an uneventful recovery. His elevated creatinine returned to baseline and as of today is 1.11. On admission, creatinine was 1.4. Initially, the plan was for the patient to be discharged yesterday on 06/16/18 , though in the evening he complained of malaise and did not feel as though he could go home. As of this morning, the patient is feeling much better. Chest x -ray and EKG as noted above were unremarkable. The patient offers no complaints. On exam, he reports some mild tenderness to the right flank, though was otherwise soft and nontender. Lungs sounds are clear on room air. Heart has a regular rate and rhythm. His physical exam is otherwise unremarkable. I did speak with Dr. Pickett this morning to get his recommendations for discharge. The patient did have a Chinchilla placed during this admission and Dr. Pickett recommended that the Chinchilla be removed and that the patient be able to successfully self-cath at least one time prior to discharge. The patient does typically self-cath 3 to 4 times a day at home. The patient was able to successfully self-cath per nursing report. Dr. Pickett additionally recommended that the patient have a KUB prior to discharge, the results of that are noted above. He recommended that the patient be placed on a 5-day course of Cipro and to follow up with him in the next week or two. The patient is in understanding of this plan and is agreeable to discharge. Mr. Coon is stable for discharge today. Vital signs are as follows: Temperature 98.5, heart rate 62, respiratory rate 16, oxygen saturation 96% on room air, blood pressure 139/82. DISCHARGE MEDICATIONS: New medication: 1. Ciprofloxacin 500 mg p.o. b.i.d. x5 days. Continued medications: 1. Combivent Respimat 1 inhalation b.i.d. p.r.n. in the evening. 2. Baclofen 10 mg p.o. t.i.d. p.r.n. spasms. 3. Symbicort 160/4.5 two puffs b.i.d. 4. Fluoxetine 30 mg p.o. daily. 5. Hydroxyzine 50 mg p.o. t.i.d. p.r.n. anxiety. 6. Latuda 40 mg p.o. at bedtime. 7. Prazosin 1 mg p.o. daily. 8. Prazosin 3 mg p.o. at bedtime. 9. Topamax 50 mg p.o. t.i.d. 10. Tramadol 50 mg p.o. q.6 hours p.r.n. pain. 11. Trazodone 100 mg p.o. at bedtime. DISCHARGE PLAN: Mr. Coon will be discharged home. Activity will be as tolerated. Diet will be regular as tolerated. Medications as noted above. As per Dr. Pickett's recommendations, I have placed the patient on a 5-day course of ciprofloxacin, which he has been instructed to start tonight. He will continue his other usual medications as noted above and I have not made any further changes. He should continue to self-cath as he was doing prior to admission. The patient will need to follow up with Dr. Pickett in the next 1 to 2 weeks for likely removal of the stent. The patient reports that he has an appointment scheduled for next week. He should follow up with his primary care provider in the next 4 to 7 days. He has been instructed to return to the hospital or nearest emergency room for any worsening of symptoms, shortness of breath, lightheadedness, dizziness, chest discomfort, high fever, chills, night sweats, loss of consciousness, or any other worrisome signs or symptoms. DISCHARGE CONDITION: Stable. DISCHARGE DISPOSITION: Home. This is a summarized report of a complex medical history and hospital stay. For further details, please see the entire medical record. TIME SPENT: Approximately 45 minutes was spent on this discharge. SIL SALAS, ARMEN [id number]/[facility] #: [id number] [facility]
== END 2018-06-17 15:05 | disposition home or self-care (01) ==
LOC: ED 18:36 → OR 22:21 → SSU 22:59
PROVIDERS: ADMIT Nurse Practitioner; ATTEND Urology
DX: Q60.0 Renal agenesis, unilateral (principal); N20.1 Calculus of ureter; N13.30 Unspecified hydronephrosis; R34 Anuria and oliguria; N21.0 Calculus in bladder; J45.909 Unspecified asthma, uncomplicated; Z87.442 Personal history of urinary calculi; F41.9 Anxiety disorder, unspecified; M54.9 Dorsalgia, unspecified; J44.9 Chronic obstructive pulmonary disease, unspecified; R11.2 Nausea with vomiting, unspecified; Z79.01 Long term (current) use of anticoagulants; F17.210 Nicotine dependence, cigarettes, uncomplicated; R10.84 Generalized abdominal pain
CPT/HCPCS: 36415; 71045; 74018; 74176; 74420; 76775; 80048; 80053; 82365; 85025; 88300; 93005; 94640; 96361; 96365; 96375; 99284; A9270-GY; G0378; J0330; J0696; J1100; J1170; J1644; J1885; J2270; J2405; J2704; J3010

== ENCOUNTER 2018-07-22 20:38 | Emergency (ER) | payer OTHER ==
[2018-07-22 22:21] LABS: Hematocrit 42 % (42-52); Hemoglobin 13.9 g/dL (14.0-18.0); Mean Corpuscular HGB Conc 34 g/dL (31-36); Mean Corpuscular Hemoglobin 32 pg (27-31); Mean Corpuscular Volume 94 fL (80-94); Mean Platelet Volume 7.3 fL (7.4-10.4); Platelet Count 195 10^3/uL (150-450); Red Cell Distribution Width 12 % (10.5-15); White Blood Count 14.2 10^3/uL (3.5-10.8)
[2018-07-22 22:38] LABS: Albumin 4.2 g/dL (3.2-5.2); Albumin/Globulin Ratio 1.8 (1-3); BUN/Creatinine Ratio 14.1 (8-20); Calcium 9.1 mg/dL (8.6-10.3); EGFR African American 66.2 (>60); EGFR Non-African American 54.7 (>60); Globulin 2.4 g/dL (2-4); Potassium 3.8 mmol/L (3.5-5.0); Total Bilirubin 0.2 mg/dL (0.2-1.0); Total Protein 6.6 g/dL (6.4-8.9)
[2018-07-22 23:22] LABS: Urine Appearance Cloudy; Urine Bacteria 1+ (Absent); Urine Bilirubin Negative (Negative); Urine Blood 2+ (Negative); Urine Color Yellow; Urine Glucose Negative (Negative); Urine Ketones Negative (Negative); Urine Nitrite Negative (Negative); Urine Protein Negative (Negative); Urine Red Blood Cell 3+(>10/hpf) (Absent); Urine Specific Gravity 1.006 (1.010-1.030); Urine Squamous Epithelial Cell Present (Absent); Urine Urobilinogen Negative (Negative); Urine White Blood Cell Trace(0-5/hpf) (Absent)
[2018-07-22] MEDS ORDERED: Ondansetron INJ* 2 MG/ML VIAL IV ONE (23:28)
[2018-07-22] MEDS ORDERED: Ketorolac INJ* 30 MG/ML 1 ML VIAL IV PUSH ONE (23:28)
[2018-07-22] MEDS ORDERED: Morphine 4 MG/ML VIAL (1 ml) 4 MG/ML VIAL IV ONE (23:28)
--- NOTE | 2018-07-22 23:34 | ED ---
Back Pain - HPI Summary HPI Summary: Pt is a 58 y/o M presenting to the ED with a chief complaint of R flank pain onset earlier today. He has a kidney stone that he was supposed to get removed this coming week, but the pain came on today severely and he has not been able to control it at home. He reports associated chills, and denies fevers. - History of Current Complaint Chief Complaint: EDFlankPain Stated Complaint: RT FLANK PAIN PER PT Time Seen by Provider: 07/22/18 23:24 Hx Obtained From: Patient Onset/Duration: Sudden Onset, Lasting Hours, Still Present Onset/Duration: Started Hours Ago, Still Present Timing: Constant, Lasting Hours Back Pain Location: Is Discrete @ - R lower flank Severity Initially: Moderate Severity Currently: Moderate Pain Intensity: 6 Pain Scale Used: 0-10 Numeric Character: Aching Aggravating Symptom(s): Nothing Alleviating Symptom(s): Nothing Associated Signs And Symptoms: Negative: Fever - Allergies/Home Medications Allergies/Adverse Reactions: Allergies Allergy/AdvReac Type Severity Reaction Status Date / Time No Known Allergies Allergy Verified 07/26/18 14:11 PMH/Surg Hx/FS Hx/Imm Hx Previously Healthy: No Endocrine/Hematology History: Reports: Hx Anticoagulant Therapy Denies: Hx Diabetes Cardiovascular History: Reports: Other Cardiovascular Problems/Disorders - PE Denies: Hx Hypertension, Hx Pacemaker/ICD Respiratory History: Reports: Hx Asthma, Hx Chronic Obstructive Pulmonary Disease (COPD), Hx Pulmonary Embolism GI History: Reports: Hx Gall Bladder Disease, Hx Ulcer - PUD, Other GI Disorders - cholecystectomy History: Reports: Hx Renal Disease, Other Problems/Disorders - left nephrectomy, vasectomy, neurogenic bladder Musculoskeletal History: Reports: Other Musculoskeletal History - L arm fx Sensory History: Reports: Hx Contacts or Glasses Denies: Hx Hearing Aid Opthamlomology History: Reports: Hx Contacts or Glasses Psychiatric History: Reports: Hx Anxiety, Hx Depression, Hx Post Traumatic Stress Disorder, Other Psychiatric Issues/Disorders - Insomnia Denies: Hx Panic Disorder - Surgical History Surgery Procedure, Year, and Place: LEFT NEPHRECTOMY -1996 ( NEUROGENIC BLADDER - SELF-CATH). VASECTOMY. CHOLECYSTECTOMY -2004 Infectious Disease History: No Infectious Disease History: Denies: Traveled Outside the [place] in Last 30 Days - Family History Known Family History: Positive: Hypertension, Other - alcoholism - Social History Alcohol Use: None Alcohol Amount: quit in december 2010 - pt. stated had no drinks in a few months Hx Substance Use: Yes Substance Use Type: Reports: Marijuana Substance Use Comment - Amount & Last Used: none recently Hx Tobacco Use: Yes - used to smoke 1 ppd for 20 years, but now smokes 1/2 ppd Smoking Status (MU): Former Smoker Type: Cigarettes Amount Used/How Often: 1/2 PPD Review of Systems Positive: Chills. Negative: Fever Positive: other - current kidney stone Positive: Myalgia All Other Systems Reviewed And Are Negative: Yes Physical Exam - Summary Physical Exam Summary: Appearance: Well-appearing, Well-nourished, lying in bed comfortably Skin: Warm, dry, no obvious rash Eyes: sclera anicteric, no conjunctival pallor ENT: mucous membranes moist, pharynx appears normal Neck: Supple, nontender Respiratory: Clear to auscultation, no signs of respiratory distress Cardiovascular: Normal S1, S2. No murmurs. Normal distal pulses in tibial and radial bilaterally. Abdomen: Soft, mild R flank tenderness, normal active bowel sounds present Musculoskeletal: Normal, Strength/ROM Intact Neurological: A&Ox3, awake and alert, mentation is normal, speech is fluent and appropriate Psychiatric: affect is normal, does not appear anxious or depressed Triage Information Reviewed: Yes Vital Signs On Initial Exam: Initial Vitals Temp Pulse Resp BP Pulse Ox 97.8 F 64 15 164/102 94 07/22/18 20:46 07/22/18 20:46 07/22/18 20:46 07/22/18 20:46 07/22/18 20:46 Vital Signs Reviewed: Yes Diagnostics - Vital Signs Vital Signs Temp Pulse Resp BP Pulse Ox 07/22/18 23:28 67 115/74 95 07/22/18 23:27 66 96 07/22/18 22:47 98.4 F 69 16 158/71 98 07/22/18 20:46 97.8 F 64 15 164/102 94 - Laboratory Lab Results: Lab Results 07/22/18 07/22/18 07/22/18 Range/Units 22:11 22:11 23:03 WBC 14.2 H (3.5-10.8) 10^3/uL RBC 4.40 (4.18-5.48) 10^6 /uL Hgb 13.9 L (14.0-18.0) g/dL Hct 42 (42-52) % MCV 94 (80-94) fL MCH 32 H (27-31) pg MCHC 34 (31-36) g/dL RDW 12 (10.5-15) % Plt Count 195 (150-450) 10^3/uL MPV 7.3 L (7.4-10.4) fL Sodium 134 L (135-145) mmol/L Potassium 3.8 (3.5-5.0) mmol/L Chloride 104 (101-111) mmol/L Carbon Dioxide 22 (22-32) mmol/L Anion Gap 8 (2-11) mmol/L BUN 19 (6-24) mg/dL Creatinine 1.35 H (0.67-1.17) mg/dL Est GFR ( Amer) 66.2 (>60) Est GFR (Non-Af Amer) 54.7 (>60) BUN/Creatinine Ratio 14.1 (8-20) Glucose 108 H (70-100) mg/dL Calcium 9.1 (8.6-10.3) mg/dL Total Bilirubin 0.20 (0.2-1.0) mg/dL AST 13 (13-39) U/L ALT 11 (7-52) U/L Alkaline Phosphatase 46 (34-104) U/L Total Protein 6.6 (6.4-8.9) g/dL Albumin 4.2 (3.2-5.2) g/dL Globulin 2.4 (2-4) g/dL Albumin/Globulin Ratio 1.8 (1-3) Urine Color Yellow Urine Appearance Cloudy Urine pH 5.0 (5-9) Ur Specific [place] 1.006 L (1.010-1.030) Urine Protein Negative (Negative) Urine Ketones Negative (Negative) Urine Blood 2+ A (Negative) Urine Nitrate Negative (Negative) Urine Bilirubin Negative (Negative) Urine Urobilinogen Negative (Negative) Ur Leukocyte Esterase 2+ A (Negative) Urine WBC (Auto) Trace(0-5/hpf) (Absent) Urine RBC (Auto) 3+(>10/hpf) A (Absent) Ur Squamous Epith Cells Present A (Absent) Urine Bacteria 1+ A (Absent) Urine Glucose Negative (Negative) Result Diagrams: 07/22/18 22:11 07/22/18 22:11 Lab Statement: Any lab studies that have been ordered have been reviewed, and results considered in the medical decision making process. - Radiology Abd XR Radiology Interpretation Completed By: ED Physician Summary of Radiographic Findings: No visible stones. Pending official radiology report. Back Pain Course/Dx - Course Course Of Treatment: Pt is a 58 y/o M presenting to the ED with a chief complaint of R flank pain onset earlier today. He has a kidney stone that flared up today and he has been unable to manage the pain at home. He reports associated chills, and denies fevers. On exam, the pt has mild R lower flank tenderness. His hematology shows WBC level of 14.2, Hgb of 13.9, MCH of 32, and MPV of 7.3. His chemistry shows a Sodium of 134, and a Creatinine of 1.35. His urine shows 2+ blood, 2+ leukocyte esterase, RBC 3+, present squamous epithelial cells, and 1+ urine bacteria, consistent with current kidney stone. In the ED course, the pt received a 10mg injection of Toradol, 10mg Morphine, and 8mg of Zofran. Abd XR shows no visible stones, pending official radiology report. The pt is stable and will be d/c'ed home with a dx of kidney stones. He is agreeable with this plan. - Diagnoses Provider Diagnoses: Kidney stones Discharge - Sign-Out/Discharge Documenting (check all that apply): Patient Departure Patient Received Moderate/Deep Sedation with Procedure: No - Discharge Plan Condition: Good Disposition: HOME Patient Education Materials: Kidney Stones (ED) Referrals: Jak Pickett MD [Medical Doctor] - Additional Instructions: Contact Dr. Pickett first thing Wednesday as he may need to change what type of procedure he will be doing to help with your stones. - Billing Disposition and Condition Condition: GOOD Disposition: Home - Attestation Statements Document Initiated by Scribe: Yes Documenting Scribe: Evy Leo Provider For Whom Toña is Documenting (Include Credential): Eleazar Lutz MD. Scribe Attestation: Evy Ordonez scribed for Eleazar Lutz MD. on 07/27/18 at 0414. Scribe Documentation Reviewed: Yes Provider Attestation: The documentation as recorded by the Evy gonzalez accurately reflects the service I personally performed and the decisions made by me, Eleazar Lutz MD. Status of Scribe Document: Viewed
[2018-07-23] MEDS ORDERED: Morphine 4 MG/ML VIAL (1 ml) 4 MG/ML VIAL IM ONE (02:04)
[2018-07-23 06:25] VITALS: BP 118/71
== END 2018-07-23 06:24 | disposition home or self-care (01) ==
LOC: ED 20:38
DX: N20.0 Calculus of kidney (principal); Z79.01 Long term (current) use of anticoagulants; Z86.711 Personal history of pulmonary embolism; J44.9 Chronic obstructive pulmonary disease, unspecified; F43.10 Post-traumatic stress disorder, unspecified; F32.9 Major depressive disorder, single episode, unspecified; F41.9 Anxiety disorder, unspecified; Z90.5 Acquired absence of kidney; Z87.891 Personal history of nicotine dependence
CPT/HCPCS: 36415; 74018; 80053; 81003; 81015; 85027; 87077; 87086; 87186; 96361; 96374; 96375; 99284; J1885; J2270; J2405

== ENCOUNTER → 2018-07-27 06:23 | Day surgery (SDC) | payer OTHER ==
--- NOTE | 2018-07-20 14:23 | HP ---
HISTORY AND PHYSICAL: DATE OF PLANNED ADMISSION AND SURGERY: 07/27/18 HISTORY OF PRESENT ILLNESS: Mr. Coon is a 58-year-old white male who is admitted with multiple right renal calculi for shockwave lithotripsy. 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 He has a solitary right kidney and had had recurrent episodes of urinary tract infections. He has been performing intermittent self- catheterization about 4 times per day. He was admitted about 5 weeks ago with right flank pain, pyelonephritis and was noted on CT of the abdomen and pelvis to have several calculi in the lower pole of the right kidney, right hydronephrosis and hydroureter and there was an 8-mm calculus in the distal right ureter and several calculi in the urinary bladder. The patient was taken to the operating room on the same day and underwent a cystoscopy with fragmentation and extraction of all the bladder calculi. He also underwent a right ureteroscopy, laser lithotripsy of the distal right ureteral calculus and insertion of right ureteral stent. He was treated for the urinary tract infections and he did very well. He was discharged home on Cipro for 5 days. He was then seen in the office and the right ureteral stent was removed 1 week postoperatively. He has done very well since that time and has continued on the intermittent self catheterization. The patient is now admitted for shockwave lithotripsy of the right renal calculi. PAST MEDICAL HISTORY AND SYSTEM REVIEW: The patient has history of asthma, COPD , anxiety, depression, chronic back pain, and hypertension. He is maintained on inhalers for his COPD. MEDICATIONS: 1. He is on Topamax 50 mg 3 times per day. 2. Tramadol 50 mg every 6 hours as needed for pain. 3. Trazodone 100 mg at bedtime. 4. He is on prazosin 3 mg at bedtime. 5. Latuda 40 mg at bedtime. 6. He takes hydroxyzine 50 mg 3 times per day as needed for anxiety. 7. He is on fluoxetine 30 mg daily. ALLERGIES: He denies any allergies to medications. FAMILY HISTORY: The patient does not know his biological father. SOCIAL HISTORY: The patient is a chronic smoker, but stopped recently. 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 He denies present recreational drug use. PHYSICAL EXAMINATION GENERAL: Pleasant white male, who looks a bit older than his age. VITAL SIGNS: Blood pressure 130/80, pulse of 60, temperature 97, oxygen saturation 98% on room air. LUNGS: Clear. HEART: Regular and rhythmic. No murmurs. ABDOMEN: Soft. No masses, no tenderness, and no CVA tenderness. EXTERNAL GENITALIA: Normal. IMPRESSION: 1. Flaccid neurogenic bladder, on intermittent self-catheterization. 2. Solitary right kidney with right hydroureteronephrosis secondary to vesicoureteral reflux. 3. Right renal calculi. 4. Chronic pyuria secondary to intermittent self-catheterization. 5. Anxiety. 6. Chronic back pain. 7. Depression. PLAN: The plan is for shockwave lithotripsy of the right renal calculi. The patient will be pretreated with Cipro 1 week preoperatively and it will be continued postoperatively. I discussed the plans in detail with the patient. All his questions were answered. [id number] #: [id number]
[~2018-07-27 06:23] MED LIST: Buffered Lidocaine 1% SYRIN* 1 ML/SYRINGE INTRADERM ONE; DiMENhydriNATE IV* 50 MG/ML VIAL IV PUSH PRN; HYDROmorphone INJ1* 1 MG/ML SYRINGE IV PRN; Iohexol 180 (CONTRAST) 10 ML SDV IV ONE; Lactated Ringers 1000 ML Bag* 1,000 ML IV SCH; Lidocaine 2% PF * 5 ML VIAL ONE; Midazolam* 1 MG/ML 5 ML VIAL (5 MG) ONE; Naloxone* 0.4 MG/ML 1 ML VIAL IV PRN; Ondansetron INJ* 2 MG/ML VIAL IV PRN; Ondansetron INJ* 2 MG/ML VIAL ONE; PROCHLORPERAZINE INJ 5 MG/ML 2 ML VIAL IV PRN; Propofol* 10 MG/ML 20 ML BTL ONE; cefTRIAXone(*) 2 GM ADDV.VIAL IVPB ONE; fentaNYL* 50 MCG/ML 2 ML VIAL (100 MCG VIAL) ONE; oxyCODONE TAB* 5 MG TAB PO PRN; oxyCODONE/Acetamin 5/325 MG* TAB ONE
[2018-07-27] MEDS: fentaNYL* 50 MCG/ML 2 ML VIAL (100 MCG VIAL) IV PRN ×4 (10:52→11:22)
[2018-07-27 12:12] VITALS: BP 154/85
--- NOTE | 2018-07-27 13:19 | OP ---
OPERATIVE REPORT: DATE OF OPERATION: 07/27/18 - LOCATED WITHIN [facility] DATE OF : 64 SURGEON: Jak Pickett MD ANESTHESIOLOGIST: Dr. Humble Katz. ANESTHESIA: General. PRE-OP DIAGNOSIS: Right renal calculi. POST-OP DIAGNOSES: 1. Bladder calculi. 2. Spontaneous passage of right renal calculi into the bladder. OPERATIVE PROCEDURE: 1. Cystoscopy. 2. Cystolithopexy. 3. Right ureteroscopy and retrograde pyelography. 4. Insertion of right ureteral stent (7-Montenegrin). INDICATION FOR PROCEDURE: Mr. Coon is a 58-year-old white male, who has a solitary right kidney and has history of recurrent right renal calculi. About one month ago, he required a cystoscopy, cystolithopexy, right ureteroscopy, extraction of right ureteral calculus. At that time, he was noted to have a cluster of 4 calculi, each measuring about 6 mm in size, located in the lower pole calyx of the right kidney. The patient was scheduled to undergo shockwave lithotripsy of the right renal calculi. For the last 3 days, he has been having recurrent episodes of right flank pain, suggestive of a passage of right renal calculi. Preoperative KUB did not show any calcification in the right kidney, suggestive that the calculi had moved into the ureter. Because of the above history and the persistence of the flank pain, the above procedure was advised and accepted. PATHOLOGY AT CYSTOSCOPY: The penile and bulbar urethrae looked normal. The prostatic urethra measured about 2.5 cm in length and there was moderate degree of prostate enlargement. Examination of the bladder showed 4 calculi in the base of the bladder. They measured between 6 and 8 mm each and they corresponded to the cluster of calculi seen on his original KUB in the right kidney. Fluoroscopy did not show any calculi in the right kidney. Right hydroureteronephrosis was noted consistent with the history of chronic reflux. DESCRIPTION OF PROCEDURE: After successful general anesthesia, the patient was placed in the lithotomy position and was prepped and draped for a cystoscopy. At fluoroscopy, no calculi was seen in the right kidney. Cystoscopy was then performed. The bladder was inspected and the bladder calculi were noted. Using a grasping forceps, the bladder calculi were broken into multiple fragments and they were irrigated and sent for stone analysis. Attention was then directed to the right ureter. The right ureteral orifice was identified. A flexible-tip guidewire was then introduced in the right ureter and positioned in the area of the renal pelvis. A size 6.5 semi-rigid tapered ureteroscope was then introduced inside the right orifice and passed without difficulty all the way into the proximal ureter and inside the renal pelvis. No calculi were identified in the ureter. The ureteroscope was then removed, keeping the guidewire in place. Retrograde pyelography was performed. A size 7-Montenegrin stent was then placed with the proximal end coiling in the renal pelvis and the distal end coiling inside the bladder. There was good drainage of contrast from the kidney and no extravasation. A 16-Montenegrin Ch[place] catheter was placed. The patient tolerated the procedure well and left the operating room in good condition. [id number]/CPS #: [id number]
== END | disposition home or self-care (01) ==
LOC: OR 06:23
PROVIDERS: ATTEND Urology
DX: N20.0 Calculus of kidney (principal); N21.0 Calculus in bladder; N31.9 Neuromuscular dysfunction of bladder, unspecified; Q60.0 Renal agenesis, unilateral; Z87.440 Personal history of urinary (tract) infections; J44.9 Chronic obstructive pulmonary disease, unspecified; F41.8 Other specified anxiety disorders; I10 Essential (primary) hypertension; M54.9 Dorsalgia, unspecified; Z87.891 Personal history of nicotine dependence; K21.9 Gastro-esophageal reflux disease without esophagitis
CPT/HCPCS: 74018; 82365; 88300; A9270-GY; C1876; J0696; J2250; J2405; J2704; J3010

== ENCOUNTER 2019-12-16 06:18 | Observation (INO) ==
[2019-12-16] MEDS ORDERED: NS 0.9% 1000 ml BAG 1,000 ML IV ONE (06:21)
[2019-12-16] MEDS ORDERED: Ondansetron 4 mg VIAL 2 MG/ML 2 ml VIAL IV ONE (06:25)
[2019-12-16] MEDS ORDERED: Morphine 4 MG/ML VIAL (1 ml) IV ONE ×2 (06:25→06:52)
[2019-12-16 07:11] LABS: ABS Basophils 0.1 10^3/ul (0-0.2); ABS Lymphocytes 1.2 10^3/ul (1.0-4.8); ABS Monocytes 0.6 10^3/ul (0-0.8); ABS Neutrophils 12.7 10^3/ul (1.5-7.7); Eosinophil % 0.2 %; Hematocrit 47 % (42-52); Hemoglobin 16.2 g/dL (14.0-18.0); Lymphocyte % 8.5 %; Mean Corpuscular HGB Conc 35 g/dL (31-36); Mean Corpuscular Hemoglobin 33 pg (27-31); Mean Corpuscular Volume 94 fL (80-94); Mean Platelet Volume 8.1 fL (7.4-10.4); Platelet Count 226 10^3/uL (150-450); Red Blood Count 4.95 10^6 /uL (4.18-5.48); Red Cell Distribution Width 13 % (10-15); White Blood Count 14.6 10^3/uL (3.5-10.8)
[2019-12-16 07:32] LABS: Albumin 4.8 g/dL (3.2-5.2); Albumin/Globulin Ratio 1.5 (1-3); BUN/Creatinine Ratio 18.5 (8-20); Calcium 10.5 mg/dL (8.6-10.3); EGFR African American 68.8 (>60); EGFR Non-African American 56.9 (>60); Globulin 3.2 g/dL (2-4); Potassium 3.9 mmol/L (3.5-5.0); Total Bilirubin 0.7 mg/dL (0.2-1.0)
[2019-12-16] MEDS ORDERED: HYDROmorphone 1 MG/1 ML SYRINGE IV SLOW PU ONE (07:34)
[2019-12-16] MEDS ORDERED: cefTRIAXone 2 GM ADDV.VIAL 2 GM in NS 0.9% 100 ml BAG 100 ML IVPB ONE (08:52)
[2019-12-16] MEDS ORDERED: HYDROmorphone 1 MG/1 ML SYRINGE IV SLOW PU PRN (10:02)
[2019-12-16] MEDS ORDERED: Lidocaine 2% PF 5 ML VIAL ONE (10:10)
[2019-12-16] MEDS ORDERED: Sevoflurane BOTTLE ONE (10:10)
[2019-12-16] MEDS ORDERED: Phenylephrine 40 mcg/mL 10mL (400mcg) SYRINGE ONE ×2 (10:10→11:05)
[2019-12-16] MEDS ORDERED: Iohexol 180 (CONTRAST) 10 ML SDV IV ONE (10:11)
[2019-12-16] MEDS ORDERED: Propofol 10 MG/ML 20 ML BTL ONE (10:13)
[2019-12-16] MEDS ORDERED: Dexamethasone IV 4 MG/ML VIAL 1 ml VIAL ONE (10:13)
[2019-12-16] MEDS ORDERED: Midazolam 2 mg/2 ml VIAL 1 mg/ml 2 ml VIAL (2 mg) ONE (10:13)
[2019-12-16] MEDS ORDERED: fentaNYL 100 mcg/2 ml 50 MCG/ML VIAL ONE (10:13)
[2019-12-16] MEDS ORDERED: Rocuronium 50 mg VIAL 10 mg/ml 5 ml VIAL (50 mg) ONE (10:14)
[2019-12-16] MEDS ORDERED: Sterile Water for Inj 10 ML ONE (10:14)
[2019-12-16] MEDS ORDERED: EPHEDrine (Pressors) 50 MG/ML VIAL ONE (10:14)
[2019-12-16 10:20] LABS: Urine Appearance Cloudy; Urine Bilirubin Negative (Negative); Urine Blood 2+ (Negative); Urine Color Yellow; Urine Glucose Negative (Negative); Urine Ketones Negative (Negative); Urine Nitrite Negative (Negative); Urine Protein Negative (Negative); Urine Specific Gravity 1.008 (1.010-1.030); Urine Urobilinogen Negative (Negative)
[2019-12-16 10:21] LABS: Urine Bacteria 1+ (Absent); Urine Red Blood Cell 1+(3-5/hpf) (Absent); Urine Squamous Epithelial Cell Present (Absent); Urine White Blood Cell 3+(>20/hpf) (Absent)
[2019-12-16] MEDS ORDERED: Sodium Citrate/Citric Acid LIQ 15 ML UDC ONE (10:25)
[2019-12-16] MEDS ORDERED: Famotidine IV 10 MG/ML 2 ml VIAL (20 mg) ONE (10:25)
[2019-12-16] MEDS ORDERED: Ondansetron 4 mg VIAL 2 MG/ML 2 ml VIAL IV PRN ×2 (10:37→11:20)
[2019-12-16] MEDS ORDERED: Sodium Citrate/Citric Acid LIQ 15 ML UDC PO ONE (10:41)
[2019-12-16] MEDS ORDERED: Famotidine IV 10 MG/ML 2 ml VIAL (20 mg) IV SLOW PU ONE (10:41)
[2019-12-16] MEDS ORDERED: Ondansetron 4 mg VIAL 2 MG/ML 2 ml VIAL ONE (11:17)
[2019-12-16] MEDS ORDERED: HYDROmorphone 1 MG/1 ML SYRINGE IV PRN (11:20)
[2019-12-16] MEDS ORDERED: Acetaminophen IV 1 GM/100ML 1,000 MG/100 ML VIAL IVPB ONE (11:20)
[2019-12-16] MEDS ORDERED: Naloxone 0.4 mg VIAL 0.4 mg/ml 1 ml VIAL IV PRN (11:20)
[2019-12-16] MEDS ORDERED: fentaNYL 100 mcg/2 ml 50 MCG/ML VIAL IV PRN (11:20)
[2019-12-16] MEDS: Lactated Ringers 1000 ml BAG 1,000 ML IV SCH ×2 (13:56→23:57)
[2019-12-16] MEDS ORDERED: Albuterol/Ipratropium NEB.SOL (2.5/0.5 MG) 3 ML NEB.SOLN INH PRN (15:19)
[2019-12-16] MEDS ORDERED: Lurasidone 120 mg TAB PO SCH (18:00)
[2019-12-16] MEDS: Mometasone/Formoter 200/5 MDI INH SCH (21:09)
[2019-12-17 06:02] LABS: ABS Lymphocytes 1.3 10^3/ul (1.0-4.8); ABS Neutrophils 8.9 10^3/ul (1.5-7.7); Eosinophil % 0.1 %; Hematocrit 37 % (42-52); Hemoglobin 12.4 g/dL (14.0-18.0); Lymphocyte % 11.8 %; Mean Corpuscular HGB Conc 34 g/dL (31-36); Mean Corpuscular Hemoglobin 32 pg (27-31); Mean Corpuscular Volume 94 fL (80-94); Mean Platelet Volume 7.9 fL (7.4-10.4); Platelet Count 162 10^3/uL (150-450); Red Blood Count 3.92 10^6 /uL (4.18-5.48); Red Cell Distribution Width 13 % (10-15); White Blood Count 11.3 10^3/uL (3.5-10.8)
[2019-12-17 06:07] LABS: BUN/Creatinine Ratio 17.8 (8-20); Calcium 8.4 mg/dL (8.6-10.3); EGFR African American 92.1 (>60); EGFR Non-African American 76.1 (>60); Potassium 3.6 mmol/L (3.5-5.0)
[2019-12-17] MEDS ORDERED: cefTRIAXone 1 gm/50 mL NS BAG 1 GM/50 ML BAG IVPB SCH (09:00)
[2019-12-17] MEDS: Mometasone/Formoter 200/5 MDI INH SCH (09:11)
[2019-12-17 12:09] VITALS: BP 107/60
== END 2019-12-17 17:15 | disposition home or self-care (01) ==
LOC: SSU 06:18 → ED 06:18
PROVIDERS: ADMIT Hospitalist; ATTEND Internal Medicine

== ENCOUNTER 2021-04-10 08:46 | Inpatient (IN) ==
[2021-04-10] MEDS ORDERED: HYDROmorphone 1 MG/1 ML SYRINGE IV PRN (09:59)
[2021-04-10] MEDS ORDERED: Levalbuterol 0.63MG/3ML NEB UNIT OF USE INH PRN (09:59)
[2021-04-10] MEDS ORDERED: Naloxone 0.4 mg VIAL 0.4 mg/ml 1 ml VIAL IV PRN (09:59)
[2021-04-10] MEDS ORDERED: Metoclopramide 5 MG/ML VIAL (10 mg) IV PRN (09:59)
[2021-04-10] MEDS ORDERED: fentaNYL 100 mcg/2 ml 50 MCG/ML VIAL IV PRN (09:59)
[2021-04-10] MEDS ORDERED: Levalbuterol 0.63MG/3ML NEB UNIT OF USE INH ONE (10:07)
[2021-04-10] MEDS: NS 0.9% 1,000 ML IV SCH ×2 (11:45→17:13)
[2021-04-10 12:45] LABS: ABS Basophils 0.1 10^3/ul (0-0.2); ABS Lymphocytes 0.2 10^3/ul (1.0-4.8); ABS Monocytes 0.5 10^3/ul (0-0.8); ABS Neutrophils 10.3 10^3/ul (1.5-7.7); Hematocrit 44 % (42-52); Hemoglobin 14.9 g/dL (14.0-18.0); Lymphocyte % 1.5 %; Mean Corpuscular HGB Conc 34 g/dL (31-36); Mean Corpuscular Hemoglobin 32 pg (27-31); Mean Corpuscular Volume 95 fL (80-94); Platelet Count 121 10^3/uL (150-450); Red Blood Count 4.66 10^6 /uL (4.18-5.48); Red Cell Distribution Width 13 % (10-15); White Blood Count 11.1 10^3/uL (3.5-10.8)
[2021-04-10] MEDS ORDERED: Cefepime ADVAN 1 GM in NS 0.9% 50 ML 50 ML IVPB SCH (13:00)
[2021-04-10] MEDS: Cefepime 1 GM in Dextrose 1 GM/50 ML BAG IV SCH (13:02)
[2021-04-10] MEDS: Heparin 5000 UNITS/ML 1 mL VIAL SUBCUT SCH ×2 (13:03→21:35)
[2021-04-10 13:32] LABS: Calcium 8.7 mg/dL (8.6-10.3); eGFR CKD-EPI 47.5 (>60)
[2021-04-10 15:50] LABS: Urine Appearance Clear; Urine Bilirubin Negative (Negative); Urine Blood 3+ (Negative); Urine Color Yellow; Urine Glucose Negative (Negative); Urine Ketones Negative (Negative); Urine Nitrite Negative (Negative); Urine Protein 2+(100 mg/dL) (Negative); Urine Specific Gravity 1.006 (1.002-1.030); Urine Urobilinogen Negative (Negative)
[2021-04-10 17:09] LABS: Urine Bacteria Absent (Absent); Urine Red Blood Cell 3+(>10/hpf) (Absent); Urine White Blood Cell 2+(11-20/hpf) (Absent)
[2021-04-10] MEDS ORDERED: NS 0.9% 1000 ml BAG 1,000 ML IV SCH (17:45)
[2021-04-11] MEDS: Cefepime 1 GM in Dextrose 1 GM/50 ML BAG IV SCH ×2 (00:42→13:34)
[2021-04-11] MEDS ORDERED: Albuterol/Ipratropium NEB.SOL (2.5/0.5 MG) 3 ML NEB.SOLN INH PRN (04:48)
[2021-04-11 05:12] LABS: Albumin 3.4 g/dL (3.2-5.2); Albumin/Globulin Ratio 1.4 (1-3); Calcium 8.2 mg/dL (8.6-10.3); Direct Bilirubin 0.1 mg/dL (0.03-0.18); Globulin 2.5 g/dL (2-4); Indirect Bilirubin 0.3 mg/dL (0.3-1.0); Potassium 4.5 mmol/L (3.5-5.0); Total Bilirubin 0.4 mg/dL (0.2-1.0); Total Protein 5.9 g/dL (6.4-8.9); eGFR CKD-EPI 58.4 (>60)
[2021-04-11 05:13] LABS: Troponin I 0.01 ng/mL (<0.03)
[2021-04-11] MEDS: Albuterol HFA INHALER 8 gm MDI INH PRN ×2 (05:36→10:26)
[2021-04-11] MEDS: Heparin 5000 UNITS/ML 1 mL VIAL SUBCUT SCH ×3 (05:47→23:49)
[2021-04-11 06:22] LABS: ABS Monocytes 1.1 10^3/ul (0-0.8); ABS Neutrophils 14.3 10^3/ul (1.5-7.7); Hematocrit 42 % (42-52); Hemoglobin 13.9 g/dL (14.0-18.0); Lymphocyte % 5.8 %; Mean Corpuscular HGB Conc 33 g/dL (31-36); Mean Corpuscular Hemoglobin 32 pg (27-31); Mean Corpuscular Volume 96 fL (80-94); Mean Platelet Volume 9.4 fL (7.4-10.4); Platelet Count 114 10^3/uL (150-450); Red Blood Count 4.34 10^6 /uL (4.18-5.48); Red Cell Distribution Width 13 % (10-15); White Blood Count 16.4 10^3/uL (3.5-10.8)
[2021-04-11] MEDS: Mometasone/Formoter 100/5 MDI INH SCH ×2 (10:26→19:55)
[2021-04-11] MEDS: SPIRIVA Respimat (tiotropium) 2.5 mcg/inh Inhaler INH SCH (10:27)
[2021-04-11] MEDS ORDERED: Nitro 2% OINT (Nitroglycerin) 1 INCH/PAK TOPICAL ONE ×2 (20:55→21:45)
[2021-04-11] MEDS ORDERED: Nitro 2% OINT (Nitroglycerin) 1 INCH/PAK ONE (20:59)
[2021-04-11 21:46] LABS: C Reactive Protein 130.94 mg/L (<8.01); Calcium 8.4 mg/dL (8.6-10.3); Magnesium 1.9 mg/dL (1.9-2.7); Potassium 4.2 mmol/L (3.5-5.0); eGFR CKD-EPI 74.1 (>60)
[2021-04-11 21:48] LABS: Troponin I 0.01 ng/mL (<0.03)
[2021-04-12] MEDS: Cefepime 1 GM in Dextrose 1 GM/50 ML BAG IV SCH (01:39)
[2021-04-12] MEDS: Heparin 5000 UNITS/ML 1 mL VIAL SUBCUT SCH (06:04)
[2021-04-12] MEDS: Mometasone/Formoter 100/5 MDI INH SCH (07:06)
[2021-04-12] MEDS: Albuterol HFA INHALER 8 gm MDI INH PRN (07:06)
[2021-04-12] MEDS: SPIRIVA Respimat (tiotropium) 2.5 mcg/inh Inhaler INH SCH (07:06)
[2021-04-12 11:09] VITALS: BP 146/93
== END 2021-04-12 11:50 | disposition home or self-care (01) | DRG 661 ==
LOC: OR 08:46 → SSU 11:48
PROVIDERS: ADMIT Internal Medicine; ATTEND Internal Medicine

== ENCOUNTER 2023-05-07 23:49 | Observation (INO) ==
[2023-05-08 00:50] LABS: Urine Appearance Extra Turbid; Urine Bacteria 3+ /HPF (Absent); Urine Bilirubin Negative (Negative); Urine Blood 3+ (Negative); Urine Color Dark-Brown; Urine Glucose Negative (Negative); Urine Ketones Negative (Negative); Urine Nitrite Negative (Negative); Urine Protein 3+ (>=300 mg/dL) (Negative); Urine Red Blood Cell 3+(>10/hpf) /HPF (0-Trace); Urine Specific Gravity 1.009 (1.002-1.030); Urine Urobilinogen Negative (Negative); Urine White Blood Cell 3+(>20/hpf) /HPF (0-Trace); Urine pH 7.5 (5.0-8.0)
[2023-05-08] MEDS: HYDROmorphone 1 MG/1 ML SYRINGE IV ONE (01:28)
[2023-05-08] MEDS: cefTRIAXone 2 gm/50 mL D5W 2 GM/50 ML BAG IV ONE (01:28)
[2023-05-08 01:33] LABS: ABS Basophils 0.1 10^3/uL (0.0-0.1); ABS Lymphocytes 0.5 10^3/uL (1.0-4.8); ABS Monocytes 1.4 10^3/uL (0.0-1.1); ABS Neutrophils 18.3 10^3/uL (1.5-7.6); Hematocrit 40.8 % (38-53); Hemoglobin 13.8 g/dL (13.2-16.3); Lymphocyte % 2.3 %; Mean Corpuscular Hemoglobin 30.2 pg (27-33); Mean Corpuscular Hgb Conc 33.9 g/dL (31-36); Mean Corpuscular Volume 89.1 fL (80-97); Mean Platelet Volume 7.7 fL (7.5-11.2); Platelet Count 263 10^3/uL (150-450); Red Blood Count 4.58 10^6/uL (4.06-5.63); Red Cell Distribution Width 14.3 % (12-17); White Blood Count 20.2 10^3/uL (3.6-10.2)
[2023-05-08 02:10] LABS: Albumin 3.9 g/dL (3.2-5.2); Albumin/Globulin Ratio 1.3 (1-3); C Reactive Protein 233.92 mg/L (<8.01); Calcium 9.3 mg/dL (8.6-10.3); Creatinine, Serum 3.7 mg/dL (0.67-1.17); Potassium 4.4 mmol/L (3.5-5.0); Total Bilirubin 0.8 mg/dL (0.2-1.0); Total Protein 6.9 g/dL (6.4-8.9); eGFR CKD-EPI 17.8 (>60)
[2023-05-08] MEDS: Lactated Ringers 1000 ml BAG 1,000 ML IV ONE ×2 (03:03→10:41)
[2023-05-08] MEDS ORDERED: Senna TAB 8.6 mg TAB PO PRN (03:27)
[2023-05-08] MEDS ORDERED: Polyethylene Glycol 3350 17 GM PACKET PO PRN (03:27)
[2023-05-08] MEDS ORDERED: Albuterol HFA INHALER 8 gm MDI INH PRN (03:34)
[2023-05-08] MEDS: Lactated Ringers 1000 ml BAG 1,000 ML IV SCH (06:05)
[2023-05-08 06:10] LABS: Hematocrit 40.6 % (38-53); Hemoglobin 13.6 g/dL (13.2-16.3); Mean Corpuscular Hemoglobin 30.3 pg (27-33); Mean Corpuscular Hgb Conc 33.4 g/dL (31-36); Mean Corpuscular Volume 90.5 fL (80-97); Mean Platelet Volume 7.8 fL (7.5-11.2); Platelet Count 235 10^3/uL (150-450); Red Blood Count 4.49 10^6/uL (4.06-5.63); Red Cell Distribution Width 14.7 % (12-17); White Blood Count 18.9 10^3/uL (3.6-10.2)
[2023-05-08 07:04] LABS: ABS Lymphocytes 0.5 10^3/uL (1.0-4.8); ABS Neutrophils 17.4 10^3/uL (1.5-7.6); ABS Nucleated RBC 0.01 10^3/ul; Lymphocyte % 2.5 %
[2023-05-08 07:06] LABS: Calcium 8.6 mg/dL (8.6-10.3); Creatinine, Serum 3.38 mg/dL (0.67-1.17); Potassium 4.4 mmol/L (3.5-5.0); eGFR CKD-EPI 19.9 (>60)
[2023-05-08] MEDS: SPIRIVA Respimat (tiotropium) 2.5 mcg/inh Inhaler INH SCH (08:10)
[2023-05-08 08:20] LABS: INR 1.21 (0.83-1.13)
[2023-05-08 14:31] VITALS: BP 160/102
[2023-05-08] MEDS ORDERED: cefTRIAXone 2 gm/50 mL D5W 2 GM/50 ML BAG IV SCH (22:00)
== END 2023-05-08 14:44 | disposition short-term general hospital (02) ==
LOC: ED 23:49 → EDHOLD 23:49
PROVIDERS: ADMIT Internal Medicine; ATTEND Internal Medicine

== ENCOUNTER 2023-06-02 10:09 | Inpatient (IN) ==
[2023-06-02] MEDS: HYDROmorphone 1 MG/1 ML SYRINGE IV SLOW PU ONE ×3 (10:47→21:08)
[2023-06-02] MEDS: Acetaminophen IV 1 GM/100ML 1,000 MG/100 ML BAG IV ONE (10:48)
[2023-06-02] MEDS: Ondansetron 4 mg VIAL 2 MG/ML 2 ml VIAL IV ONE (10:48)
[2023-06-02] MEDS: Lactated Ringers SEPSIS* BAG 2,120 ML IV ONE (10:48)
[2023-06-02] MEDS: cefTRIAXone 1 gm/50 mL D5W 1 GM/50 ML BAG IV ONE (10:49)
[2023-06-02 11:01] LABS: Hematocrit 31.8 % (38-53); Hemoglobin 10.7 g/dL (13.2-16.3); Mean Corpuscular Hemoglobin 30.1 pg (27-33); Mean Corpuscular Hgb Conc 33.6 g/dL (31-36); Mean Corpuscular Volume 89.5 fL (80-97); Platelet Count 340 10^3/uL (150-450); Red Blood Count 3.56 10^6/uL (4.06-5.63); White Blood Count 17.4 10^3/uL (3.6-10.2)
[2023-06-02 11:10] LABS: Activated Partial Thrombo Time 30.5 seconds (26.0-38.0); INR 1.29 (0.83-1.13)
[2023-06-02 11:36] LABS: ABS Lymphocytes 0.9 10^3/uL (1.0-4.8); ABS Monocytes 1.8 10^3/uL (0.0-1.1); ABS Neutrophils 14.7 10^3/uL (1.5-7.6); ABS Nucleated RBC 0.01 10^3/ul; Eosinophil % 0.1 %
[2023-06-02] MEDS: NS 0.9% 1000 ml BAG 1,000 ML IV ONE (11:39)
[2023-06-02 11:42] LABS: Albumin 3.7 g/dL (3.2-5.2); Albumin/Globulin Ratio 1.2 (1-3); C Reactive Protein 88.76 mg/L (<8.01); Calcium 9.1 mg/dL (8.6-10.3); Creatinine, Serum 1.52 mg/dL (0.67-1.17); Globulin 3.2 g/dL (2-4); Potassium 3.9 mmol/L (3.5-5.0); Total Bilirubin 0.6 mg/dL (0.2-1.0); Total Protein 6.9 g/dL (6.4-8.9); eGFR CKD-EPI 51.8 (>60)
[2023-06-02 12:06] LABS: High Sensitivity Troponin 1 Hr 6 pg/mL (<20)
[2023-06-02 14:52] LABS: Urine Color Dark-Red
[2023-06-02 14:53] LABS: Urine Appearance Turbid
[2023-06-02 14:54] LABS: Urine Specific Gravity 1.012 (1.002-1.030)
[2023-06-02 15:19] LABS: Urine Bacteria 1+ /HPF (Absent); Urine Red Blood Cell 3+(>10/hpf) /HPF (0-Trace); Urine White Blood Cell 3+(>20/hpf) /HPF (0-Trace)
[2023-06-02] MEDS: Iodixanol (CONTRAST) 320 MG/ML 100 ML SDV IV ONE (15:41)
[2023-06-02] MEDS ORDERED: Zosyn per Pharmacy NOTE FOLLOW UP SCH (16:00)
[2023-06-02] MEDS: fentaNYL 250 mcg/5 ml 50 MCG/ML 5 ml VIAL (250 MCG) ONE (16:53)
[2023-06-02] MEDS: Midazolam 2 mg/2 ml VIAL 1 mg/ml 2 ml VIAL (2 mg) ONE (16:54)
[2023-06-02] MEDS: ZOSYN 3.375 GM x ONE DOSE over 30 miuntes IV (18:46)
[2023-06-02] MEDS: Iohexol 350 (CONTRAST) 500 ML MDV IV ONE (19:18)
[2023-06-02] MEDS: Mometasone 220 MCG MDI INH SCH (19:36)
[2023-06-02 20:37] LABS: ABS Basophils 0.2 10^3/uL (0.0-0.1); ABS Monocytes 1.4 10^3/uL (0.0-1.1); Hemoglobin 10.7 g/dL (13.2-16.3); Lymphocyte % 5.5 %; Mean Corpuscular Hemoglobin 30.1 pg (27-33); Mean Corpuscular Hgb Conc 33.6 g/dL (31-36); Mean Corpuscular Volume 89.7 fL (80-97); Mean Platelet Volume 7.2 fL (7.5-11.2); Platelet Count 331 10^3/uL (150-450); Red Blood Count 3.56 10^6/uL (4.06-5.63); Red Cell Distribution Width 15.4 % (12-17); White Blood Count 17.5 10^3/uL (3.6-10.2)
[2023-06-02] MEDS ORDERED: diazePAM INJ CARPUJECT 5 MG/ML SYRINGE IV PRN (21:01)
[2023-06-02] MEDS: Magnesium Hydroxide LIQ 30 ML UDC PO ONE (21:07)
[2023-06-02 21:16] LABS: Creatinine, Serum 1.78 mg/dL (0.67-1.17); Potassium 4.8 mmol/L (3.5-5.0); eGFR CKD-EPI 42.9 (>60)
[2023-06-02 21:28] LABS: Urine Appearance Extra Turbid; Urine Specific Gravity 1.043 (1.002-1.030)
[2023-06-02 21:29] LABS: Urine Color Dark-Red
[2023-06-02 21:41] LABS: Urine Bacteria Absent /HPF (Absent); Urine Red Blood Cell 3+(>10/hpf) /HPF (0-Trace); Urine White Blood Cell 3+(>20/hpf) /HPF (0-Trace)
[2023-06-02] MEDS: ZOSYN 3.375 GM Q8H per EXTENDED INFUSION IV SCH (22:07)
[2023-06-02] MEDS: Lactated Ringers 1000 ml BAG 1,000 ML IV ONE (22:49)
[2023-06-03] MEDS: Morphine 2 MG/ML SYRINGE IV ONE (05:34)
[2023-06-03 06:03] LABS: ABS Lymphocytes 0.7 10^3/uL (1.0-4.8); ABS Monocytes 1.1 10^3/uL (0.0-1.1); ABS Neutrophils 11.8 10^3/uL (1.5-7.6); Hematocrit 25.8 % (38-53); Hemoglobin 8.8 g/dL (13.2-16.3); Lymphocyte % 5.4 %; Mean Corpuscular Hemoglobin 30.5 pg (27-33); Mean Corpuscular Hgb Conc 33.9 g/dL (31-36); Mean Platelet Volume 6.8 fL (7.5-11.2); Platelet Count 242 10^3/uL (150-450); Red Blood Count 2.87 10^6/uL (4.06-5.63); Red Cell Distribution Width 15.1 % (12-17); White Blood Count 13.7 10^3/uL (3.6-10.2)
[2023-06-03 06:10] LABS: INR 1.4 (0.83-1.13)
[2023-06-03 06:25] LABS: Calcium 8.2 mg/dL (8.6-10.3); Creatinine, Serum 1.46 mg/dL (0.67-1.17); Magnesium 1.7 mg/dL (1.9-2.7); Potassium 3.9 mmol/L (3.5-5.0); eGFR CKD-EPI 54.4 (>60)
[2023-06-03] MEDS: Iodixanol (CONTRAST) 320 MG/ML 100 ML SDV IV ONE (10:00)
[2023-06-03] MEDS ORDERED: Naloxone 0.4 mg VIAL 0.4 mg/ml 1 ml VIAL IV PUSH PRN (13:09)
[2023-06-03] MEDS ORDERED: Morphine 2 MG/ML SYRINGE IV PRN (13:09)
[2023-06-03] MEDS: Morphine 2 MG/ML SYRINGE IV PRN (13:30)
[2023-06-03] MEDS ORDERED: Vancomycin per Pharmacy 1 EA NOTE FOLLOW UP SCH (16:00)
[2023-06-03] MEDS: Vancomycin 1,250 MG in NS 0.9% 250 ml 250 ML IVPB ONE (16:50)
[2023-06-03 16:54] LABS: ABS Lymphocytes 0.8 10^3/uL (1.0-4.8); ABS Monocytes 1.2 10^3/uL (0.0-1.1); ABS Neutrophils 10.9 10^3/uL (1.5-7.6); ABS Nucleated RBC 0.01 10^3/ul; Eosinophil % 0.1 %; Hematocrit 27.1 % (38-53); Hemoglobin 9.2 g/dL (13.2-16.3); Lymphocyte % 6.5 %; Mean Corpuscular Hemoglobin 30.8 pg (27-33); Mean Corpuscular Volume 90.7 fL (80-97); Nucleated Red Blood Cells % 0.1 %/100WBC (0.0-0.8); Platelet Count 274 10^3/uL (150-450); Red Blood Count 2.98 10^6/uL (4.06-5.63); Red Cell Distribution Width 15.6 % (12-17)
[2023-06-03 17:48] LABS: Calcium 8.5 mg/dL (8.6-10.3); Creatinine, Serum 1.56 mg/dL (0.67-1.17); Magnesium 1.9 mg/dL (1.9-2.7); Potassium 4.5 mmol/L (3.5-5.0); eGFR CKD-EPI 50.2 (>60)
[2023-06-03] MEDS: Lactated Ringers 1000 ml BAG 1,000 ML IV ONE (21:21)
[2023-06-04 05:17] LABS: Hematocrit 25.6 % (38-53); Hemoglobin 8.7 g/dL (13.2-16.3); Mean Corpuscular Hemoglobin 30.6 pg (27-33); Mean Corpuscular Volume 90.2 fL (80-97); Mean Platelet Volume 7.4 fL (7.5-11.2); Platelet Count 283 10^3/uL (150-450); Red Blood Count 2.84 10^6/uL (4.06-5.63); Red Cell Distribution Width 15.1 % (12-17); White Blood Count 12.1 10^3/uL (3.6-10.2)
[2023-06-04 05:33] LABS: Calcium 8.2 mg/dL (8.6-10.3); Creatinine, Serum 1.7 mg/dL (0.67-1.17); Magnesium 1.8 mg/dL (1.9-2.7); Potassium 3.9 mmol/L (3.5-5.0); eGFR CKD-EPI 45.3 (>60)
[2023-06-04] MEDS: Vancomycin 750 MG in NS 0.9% 250 ML IVPB SCH (06:35)
[2023-06-04 06:43] LABS: ABS Lymphocytes 1.2 10^3/uL (1.0-4.8); ABS Neutrophils 9.9 10^3/uL (1.5-7.6); ABS Nucleated RBC 0.01 10^3/ul; Eosinophil % 0.3 %; Lymphocyte % 9.7 %; Nucleated Red Blood Cells % 0.1 %/100WBC (0.0-0.8)
[2023-06-04] MEDS: oxyCODONE SR 10 mg TAB PO SCH (11:59)
[2023-06-04 14:15] LABS: Hematocrit 25.7 % (38-53); Hemoglobin 8.6 g/dL (13.2-16.3)
[2023-06-04] MEDS ORDERED: Sulfur Hexaflouride MICROSPHR 25 MG VIAL ONE (15:52)
[2023-06-04 18:15] LABS: Hematocrit 25.7 % (38-53); Hemoglobin 8.7 g/dL (13.2-16.3)
[2023-06-05] MEDS ORDERED: Vancomycin Trough Check NOTE FOLLOW UP ONE (05:30)
[2023-06-05 07:00] LABS: Hematocrit 25.7 % (38-53); Hemoglobin 8.8 g/dL (13.2-16.3); Mean Corpuscular Hemoglobin 30.9 pg (27-33); Mean Corpuscular Hgb Conc 34.1 g/dL (31-36); Mean Corpuscular Volume 90.6 fL (80-97); Mean Platelet Volume 7.2 fL (7.5-11.2); Platelet Count 277 10^3/uL (150-450); Red Blood Count 2.84 10^6/uL (4.06-5.63); Red Cell Distribution Width 15.4 % (12-17); White Blood Count 10.7 10^3/uL (3.6-10.2)
[2023-06-05 07:23] LABS: Creatinine, Serum 1.33 mg/dL (0.67-1.17); Creatinine, Serum 1.36 mg/dL (0.67-1.17); Magnesium 1.8 mg/dL (1.9-2.7); Potassium 4.3 mmol/L (3.5-5.0); Vancomycin Trough 5.2 mcg/mL; eGFR CKD-EPI 59.2 (>60); eGFR CKD-EPI 60.8 (>60)
[2023-06-05] MEDS: HYDROmorphone 1 MG/1 ML SYRINGE IV SLOW PU PRN (11:18)
[2023-06-05] MEDS: Senna TAB 8.6 mg TAB PO SCH (20:45)
[2023-06-06 06:55] LABS: Hematocrit 25.2 % (38-53); Hemoglobin 8.7 g/dL (13.2-16.3); Mean Corpuscular Hgb Conc 34.6 g/dL (31-36); Mean Corpuscular Volume 89.6 fL (80-97); Mean Platelet Volume 6.8 fL (7.5-11.2); Platelet Count 320 10^3/uL (150-450); Red Blood Count 2.81 10^6/uL (4.06-5.63); Red Cell Distribution Width 14.9 % (12-17); White Blood Count 11.6 10^3/uL (3.6-10.2)
[2023-06-06 07:54] LABS: Calcium 8.3 mg/dL (8.6-10.3); Creatinine, Serum 1.75 mg/dL (0.67-1.17); Magnesium 1.9 mg/dL (1.9-2.7); Potassium 3.9 mmol/L (3.5-5.0); eGFR CKD-EPI 43.7 (>60)
[2023-06-06 08:59] LABS: ABS Basophils 0.1 10^3/uL (0.0-0.1); ABS Eosinophils 0.2 10^3/uL (0.0-0.5); ABS Lymphocytes 1.8 10^3/uL (1.0-4.8); ABS Monocytes 1.2 10^3/uL (0.0-1.1); ABS Neutrophils 8.4 10^3/uL (1.5-7.6); ABS Nucleated RBC 0.01 10^3/ul; Eosinophil % 1.3 %; Lymphocyte % 15.7 %; Nucleated Red Blood Cells % 0.1 %/100WBC (0.0-0.8)
[2023-06-06] MEDS: Polyethylene Glycol 3350 17 GM PACKET PO SCH (09:06)
[2023-06-06 09:08] LABS: RBC Morphology Normal (Normal)
[2023-06-06] MEDS: Enoxaparin 40 MG/0.4 ML SYR SUBCUT SCH ×2 (10:14→14:20)
[2023-06-06] MEDS: oxyCODONE SR 10 mg TAB PO SCH (14:18)
[2023-06-07 06:52] LABS: Hematocrit 24.8 % (38-53); Hemoglobin 8.3 g/dL (13.2-16.3); Mean Corpuscular Hemoglobin 30.4 pg (27-33); Mean Corpuscular Hgb Conc 33.7 g/dL (31-36); Mean Corpuscular Volume 90.4 fL (80-97); Mean Platelet Volume 7.1 fL (7.5-11.2); Platelet Count 300 10^3/uL (150-450); Red Blood Count 2.74 10^6/uL (4.06-5.63); Red Cell Distribution Width 15.2 % (12-17); White Blood Count 13.1 10^3/uL (3.6-10.2)
[2023-06-07 07:03] LABS: Calcium 8.6 mg/dL (8.6-10.3); Creatinine, Serum 1.74 mg/dL (0.67-1.17); Potassium 4.6 mmol/L (3.5-5.0); eGFR CKD-EPI 44.1 (>60)
[2023-06-07] MEDS: Morphine 2 MG/ML SYRINGE IV PRN (18:45)
[2023-06-08 08:28] LABS: Hematocrit 26.4 % (38-53); Hemoglobin 8.9 g/dL (13.2-16.3); Mean Corpuscular Hemoglobin 30.5 pg (27-33); Mean Corpuscular Hgb Conc 33.8 g/dL (31-36); Mean Corpuscular Volume 90.2 fL (80-97); Mean Platelet Volume 7.3 fL (7.5-11.2); Platelet Count 323 10^3/uL (150-450); Red Blood Count 2.93 10^6/uL (4.06-5.63); Red Cell Distribution Width 15.2 % (12-17); White Blood Count 16.5 10^3/uL (3.6-10.2)
[2023-06-08 08:45] LABS: Calcium 8.6 mg/dL (8.6-10.3); Creatinine, Serum 1.43 mg/dL (0.67-1.17); Potassium 4.3 mmol/L (3.5-5.0); eGFR CKD-EPI 55.7 (>60)
[2023-06-08 08:55] LABS: ABS Basophils 0.1 10^3/uL (0.0-0.1); ABS Eosinophils 0.1 10^3/uL (0.0-0.5); ABS Lymphocytes 2.7 10^3/uL (1.0-4.8); ABS Monocytes 1.2 10^3/uL (0.0-1.1); ABS Neutrophils 12.3 10^3/uL (1.5-7.6); ABS Nucleated RBC 0.02 10^3/ul; Eosinophil % 0.9 %; Lymphocyte % 16.3 %; Nucleated Red Blood Cells % 0.1 %/100WBC (0.0-0.8)
[2023-06-08 08:56] LABS: RBC Morphology Normal (Normal)
[2023-06-08] MEDS ORDERED: Alteplase (CATHFLO) 2 MG VIAL ONE (15:44)
[2023-06-09 06:55] LABS: Hematocrit 26.1 % (38-53); Hemoglobin 8.7 g/dL (13.2-16.3); Mean Corpuscular Hemoglobin 29.8 pg (27-33); Mean Corpuscular Hgb Conc 33.5 g/dL (31-36); Mean Corpuscular Volume 89.1 fL (80-97); Mean Platelet Volume 6.9 fL (7.5-11.2); Platelet Count 309 10^3/uL (150-450); Red Blood Count 2.93 10^6/uL (4.06-5.63); Red Cell Distribution Width 15.3 % (12-17); White Blood Count 16.6 10^3/uL (3.6-10.2)
[2023-06-09 07:27] LABS: Creatinine, Serum 1.41 mg/dL (0.67-1.17); Potassium 4.5 mmol/L (3.5-5.0); eGFR CKD-EPI 56.7 (>60)
[2023-06-09 07:53] LABS: ABS Basophils 0.1 10^3/uL (0.0-0.1); ABS Eosinophils 0.1 10^3/uL (0.0-0.5); ABS Lymphocytes 2.3 10^3/uL (1.0-4.8); ABS Monocytes 1.1 10^3/uL (0.0-1.1); Eosinophil % 0.5 %; Lymphocyte % 13.6 %; RBC Morphology Normal (Normal)
[2023-06-09 14:14] VITALS: BP 151/94
== END 2023-06-09 15:50 | disposition home health service (06) | DRG 854 ==
LOC: ED 10:09 → EDHOLD 10:09 → SUATTDRO 14:42 → MED 17:59 → SUATTDRO 06-04 10:50
PROVIDERS: ADMIT Student in an Organized Health Care Education/Training Program; ATTEND Student in an Organized Health Care Education/Training Program